=== PATIENT | male | born 1950 | race Caucasian/White ===

== ENCOUNTER 2019-05-03 07:06 | Outpatient (CLI) | payer MEDICARE, SELFPAY ==
--- NOTE | 2019-05-03 07:30 | XR_ITS ---
WS: [id number] KUB, 05/03/2019 Clinical Data: Follow up for elevated PSA Comparison: KUB, 11/17/2013. Findings: No abnormal intraabdominal masses or calcifications are seen. There is no dilatated small bowel or ev idence of obstruction. No definite renal or ureteral calculi are seen. There is fecal material in the colon which obscures d etail over the right kidney. Clinical material in the rectum obscures detail in the true pelvis. XR/XR KUB [id number] Impression: Negative KUB.
== END 2019-05-03 07:07 | disposition home or self-care (01) ==
PROVIDERS: Family Provider Family Medicine; PCP Family Medicine; Visit Provider Urology
DX: Q62.11 Congenital occlusion of ureteropelvic junction (principal); R97.20 Elevated prostate specific antigen [PSA]
CPT/HCPCS: 36415; 74018; 81001; 84153

== ENCOUNTER → 2019-05-23 08:49 | Outpatient (BNVA) | payer MEDICARE, SELFPAY | PROVIDERS: Family Provider Family Medicine; PCP Family Medicine; Visit Provider Urology | DX: R97.20 Elevated prostate specific antigen [PSA] (principal) | CPT/HCPCS: 88305 ==

== ENCOUNTER 2019-06-16 13:43 | Outpatient (CLI) | payer MEDICARE, SELFPAY ==
--- NOTE | 2019-06-20 11:39 | N.ONRAD NP_ITS ---
Radiation Oncology New Patient Visit Patient: Juvencio Lacy MR#: [id number] : 1950> Age: 69> Sex: Male> Dictated by: Dr. Davon Ruiz Date of Service: 06/16/2019 Referring Physician(s) : Dr. 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 Chief Complaint / History of Present Illness Mr. Warren is noted to have a elevated PSA level since July 2018 when it was initially 11.53 recheck at that time was 16.4 recheck in October 2018 was 7.53 and finally in April 2019 8.5. He ultimately underwent trans-rectal needle biopsy here on May 23, 2019 it revealed Salinas score 6 adenocarcinoma in involving 10 to 50% of 4 of 12 biopsies obtained. During this time he has had ongoing nocturia occurring 3-4 times at night with good flow and modest ongoing urgency. 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 He has gained 20 pounds over the last 6 months with stable appetite. Allergies: No Known Allergies Medical History: No history of collagen vascular disease. No previous radiation therapy. Surgical History: Reconstruction of ureteral repair at [facility] for obstruction. History of acute pancreatitis last year Family History: Father is at age 53 having experienced myocardial infarction. Mother is at age 63 having experienced brain tumor. Social History: Current Complaints / Review of Systems: Constitutional - Complains of mild fatigue. Denies lack of appetite, fever, night sweats and change in weight. Eyes - Denies blurred vision. ENMT - Denies dysphagia, ear pain, mouth dryness, stomatitis and altered taste. Neck - Denies neck pain. Integumentary - Denies rash. Cardiovascular - Denies arrhythmias, chest pain and edema. Respiratory - Complains of cough which happens in the morning and is a dry cough. Denies dyspnea and wheezing. Gastrointestinal - Complains of occasional diarrhea. Denies abdominal pain, constipation, heartburn / dyspepsia, melena / GI bleeding, nausea and vomiting. Genitourinary (M) - Complains of frequency and nocturia gets up about 4 times per night. Denies dysuria, hematuria and urgency. Musculoskeletal - Complains of joint pain right shoulder. Denies bone pain and muscle weakness. Neurologic - Denies dizziness, abnormal gait and headaches. Endocrine - Denies diabetes and thyroid disease. Hematologic/Lymphatic - Denies tender or enlarged lymph nodes.. Vital Signs: Performed on 06/16/2019 3:00 PM BMI - 36.793 kg/m2 (high), Height - 71.00 in, Weight - 263.8 lbs, Temperature - 98.3 f, Pulse - 69, Respiration - 20, O2 Sat - 98 %, Pain - 0 and BP - 161/ 83 mm(hg)(high/). Physical Exam: Alert cooperative somewhat anxious gentleman in no acute distress HEENT examination unremarkable lymph nodes he had no palpable cervical or supraclavicular adenopathy lungs clear to auscultation heart regular without murmur gallop abdominal examination unremarkable outside of obesity. Rectal examination revealed a small smooth prostate with no masses nodularity or asymmetry Performance Status: 100 Pathology: Arnoldo score 6 adenocarcinoma involving 4 of 12 biopsies as summarized above Lab: Imaging: See HPI Impression: In summary my impression is that of favorable stage I (T1 cN0 M0) Arnoldo score 6 adenocarcinoma the prostate in light of his declining PSA level which may reflect occult pancreatitis now with a PSA less than 10 I did not feel he required staging CT scan of the abdomen or pelvis or bone scan imaging. In addition I did not feel he required adjuvant hormonal therapy with definitive local treatment. I felt that he was a candidate for both definitive surgical resection as well as definitive radiation treatment. I discussed the relative merits and toxicities of both treatments. He will contemplate his choices and decide with Dr. Poe what definitive treatment he would like to proceed with in the future. Plan: Signed by: 06/20/2019 11:38:02 AM <<Signature on File>> Time spent with patient: CPT Code: CPT Code:
== END 2019-06-16 13:44 | disposition home or self-care (01) ==
LOC: ONCMED 13:43
PROVIDERS: Family Provider Family Medicine; PCP Family Medicine; Referring Provider Urology; Visit Provider Radiology Radiation Oncology
DX: C61 Malignant neoplasm of prostate (principal)
CPT/HCPCS: 99204

== ENCOUNTER 2019-07-20 06:59 | Outpatient (RCR) | payer MEDICARE, SELFPAY ==
--- NOTE | 2019-07-20 | CT_ITS ---
Radiation Therapy Planning CT images; total exam DLP: 928.00 mGy-cm MTDD
== END 2019-07-24 23:59 | disposition home or self-care (01) ==
LOC: ONCMED 06:59
PROVIDERS: PCP Family Medicine; Visit Provider Radiology Radiation Oncology
DX: C61 Malignant neoplasm of prostate (principal); N40.1 Benign prostatic hyperplasia with lower urinary tract symptoms; N13.8 Other obstructive and reflux uropathy
CPT/HCPCS: 77334

== ENCOUNTER 2019-08-23 06:50 | Outpatient (RCR) | payer MEDICARE, SELFPAY ==
--- NOTE | 2019-07-26 13:02 | ONCRAD TMN_ITS ---
Radiation Oncology Weekly Treatment Management Patient: Juvencio Lacy MR#: [id number] : 1950 Age: 69 Sex: Male Dictated by: Dr. Davon Ruiz Date of Service: 07/26/2019 Referring Physician(s) : Dr. Zachary Poe Primary Diagnosis: C61 - Malignant neoplasm of prostate, Diagnosed 06/16/2019 (Active) Stage I, T1c, N0, M0, P<10, G1 Radiotherapy to date: Course: Prostate 2019, Treatment Site: Prostate 78Gy, Ref. ID: [id number], Energy: 15X/6X, Dose/Fx (cGy): 200, #Fx: , Dose Correction (cGy): 0, Total Dose (cGy): 200, Start Date: 07/26/2019, Elapsed Days: 0 Current Complaints/Interval History: Yes ma'am how is he doing not much he is just begun treatment today he took 0.5 mg of Xanax for anxiety related to treatment anticipation. This was insufficient and did nothing for him as yet. I discussed increasing Xanax to 1 mg prior to treatment Constitutional Complains of mild fatigue. Denies lack of appetite, fever and night sweats. Gastrointestinal Complains of occasional diarrhea. Denies constipation. No rectal bleeding or irritation Genitourinary (M) Complains of nocturia gets up about 4 times per night. Denies dysuria, frequency and urgency. Current Medications: Acetaminophen, allopurinol, metoprolol Succinate ER, pantoprazole Sodium, xanax. Allergies: No Known Allergies Vital Signs: Performed on 07/26/2019 10:08 AM BMI - 36.932 kg/m2 (high), Height - 71.00 in, Weight - 264.8 lbs, Temperature - 98.8 f, Pulse - 67, Respiration - 20, O2 Sat - 97 %, Pain - 6 and BP - 163/ 88 mm(hg)(high/). Physical Exam: Appears stable, no skin erythema or desquamation. Performance Status: 0 - Fully active, able to carry on all predisease activities without restrictions. (ECOG) Lab: None pending in Radiation Oncology. Imaging: No new diagnostic imaging was performed since the last weekly treatment visit. All radiation therapy related imaging (including but not limited to kV, MV, and CBCT generated images) was reviewed. Appropriate changes, if any, were made to assure accurate target localization. Impression/Plan: Tolerating treatment well with expected side effects. Continue treatment as planned. Increase Xanax 1 mg before treatment for anxiety CPT: 34050 Signed by: Dr. Davon Ruiz>07/26/2019 1:01:10 PM <<Signature on File>>
--- NOTE | 2019-08-02 09:47 | N.ONRAD NP_ITS ---
Radiation Oncology Weekly Treatment Management, Patient: Juvencio Lacy MR#: [id number] : 1950> Age: 69> Sex: Male Dictated by: Geneva Guerrero Date of Service: 08/02/2019 Referring Physician(s) : Dr. Zachary Poe Diagnosis: C61 - Malignant neoplasm of prostate, Diagnosed 06/16/2019 (Active) Stage I, T1c, N0, M0, P<10, G1 Patient presents today for check-up by registered nurse. The patients has had Course: Prostate 2019, Treatment Site: Prostate 78Gy, , Ref. ID: [id number], Energy: 15X/6X, Dose/Fx (cGy): 200, #Fx: , Dose Correction (cGy): 0, Total Dose (cGy): 1,200, Start Date: 07/26/2019, End Date: 08/02/2019, Elapsed Days: 7. Patient Has complaint of dysuria but is tolerable. I have addressed complaints by encouraging the patient to drink plenty of fluids. I let the patient know that we could do a UA to rule out a UTI and the patient did not want to do it at this time. This nurse told the patient that if it gets worse to let me know and we can order one. Nursing assessment of patient as follows: Constitutional Complains of moderate fatigue. Denies lack of appetite, night sweats and change in weight. Gastrointestinal Denies constipation and diarrhea. No rectal bleeding or irritation. Genitourinary (M) Complains of dysuria that has occurred within the last several days and is tolerable at this time.. Complains of frequency. Complains of nocturia getting up every 2 hours to urinate. Denies hematuria, urgency and urine color change. Questions encouraged and answered. I encouraged patient to call with any concerns. Patient verbalized understanding and denied any further needs at this time. Vital Signs: Performed on 08/02/2019 9:19 AM BMI - 37.49 kg/m2 (high), Height - 71.00 in, Weight - 268.8 lbs, Temperature - 98.2 f, Pulse - 71, Respiration - 18, O2 Sat - 95 % (low), Pain - 0 and BP - 176/ 77 mm(hg)(high/). Signed by: Geneva Guerrero>08/02/2019 9:45:25 AM <<Signature on File>>
[2019-08-09 10:26] LABS: Add Urine Microscopic? NO
[2019-08-09 10:36] LABS: Bilirubin Urine Neg (NEGATIVE); Blood Urine Neg (Negative); Glucose Urine UA Norm (Normal); Ketones Urine Negative (Negative); Leukocyte Esterase Urine Negative (Negative); Nitrate Urine Negative (Negative); Protein Urine Neg (Negative); Specific Gravity, Urine 1.015 (1.005-1.030); Urine Appearance Clear (CLEAR); Urine Color Yellow (Yellow); Urobilinogen Urine Norm (Negative); pH Urine 5 (5-7)
--- NOTE | 2019-08-11 10:38 | ONCRAD TMN_ITS ---
Radiation Oncology Weekly Treatment Management Patient: Juvencio Lacy MR#: [id number] : 1950> Age: 69> Sex: Male Dictated by: Dr. Patrick Ellsworth Date of Service: 08/09/2019 Referring Physician(s) : Dr. Zachary Poe Primary Diagnosis: C61 - Malignant neoplasm of prostate, Diagnosed 06/16/2019 (Active) Stage I, T1c, N0, M0, P<10, G1 Radiotherapy to date: Course: Prostate 2019, Treatment Site: Prostate 78Gy, Ref. ID: [id number], Energy: 15X/6X, Dose/Fx (cGy): 200, #Fx: , Dose Correction (cGy): 0, Total Dose (cGy): 2,200, Start Date: 07/26/2019, Elapsed Days: 14 Current Complaints/Interval History: 2200 cGy in 11 fractions. Mr. Marinelli is having significant fatigue. That is probably at least partially related to the fact that he is having a great deal of nocturia. Last night he was up 10 times. That was by far the worst night he has had. He is also developed discomfort with urination as well as urgency. He has no bowel complaints. No fever or chills. Constitutional Complains of lack of appetite. Complains of severe fatigue. Denies fever and night sweats. Gastrointestinal Denies constipation and diarrhea. No rectal bleeding or irritation Genitourinary (M) Complains of dysuria, frequency, nocturia get up about 10 times per night and urgency. Denies hematuria. Current Medications: Acetaminophen, allopurinol, metoprolol Succinate ER, pantoprazole Sodium, xanax. Allergies: No Known Allergies Vital Signs: Performed on 08/09/2019 9:06 AM BMI - 36.932 kg/m2 (high), Height - 71.00 in, Weight - 264.8 lbs, Temperature - 98.8 f, Pulse - 78, Respiration - 18, O2 Sat - 97 %, Pain - 0 and BP - 148/ 87 mm(hg)(high/). Physical Exam: Appears stable, no skin erythema or desquamation. Alert, oriented, and in no distress. Performance Status: 0 - Fully active, able to carry on all predisease activities without restrictions. (ECOG) Lab: None pending in Radiation Oncology. Imaging: No new diagnostic imaging was performed since the last weekly treatment visit. All radiation therapy related imaging (including but not limited to kV, MV, and CBCT generated images) was reviewed. Appropriate changes, if any, were made to assure accurate target localization. Impression/Plan: We will obtain a urinalysis and then culture if indicated. I am going to start him on Flomax. He will also get [id number] Azo. No antibiotic will be prescribed until we know the results of the urinalysis.. Continue treatment as planned. CPT: 08932 Signed by: Dr. Patrick Ellsworth>08/11/2019 10:37:42 AM <<Signature on File>>
--- NOTE | 2019-08-16 10:08 | ONCRAD TMN_ITS ---
Radiation Oncology Weekly Treatment Management Patient: Juvencio Lacy MR#: [id number] : 1950> Age: 69> Sex: Male Dictated by: Dr. Patrick Ellsworth Date of Service: 08/16/2019 Referring Physician(s) : Dr. Zachary Poe Primary Diagnosis: C61 - Malignant neoplasm of prostate, Diagnosed 06/16/2019 (Active) Stage I, T1c, N0, M0, P<10, G1 Radiotherapy to date: Course: Prostate 2019, Treatment Site: Prostate 78Gy, Ref. ID: [id number], Energy: 15X/6X, Dose/Fx (cGy): 200, #Fx: 16 / 39, Dose Correction (cGy): 0, Total Dose (cGy): 3,200, Start Date: 07/26/2019, Elapsed Days: Current Complaints/Interval History: Mr. Weinstein continues to have difficulty. He had a urinalysis last week because of frequency and dysuria. The urinalysis was negative. He obtained [id number] Azo and was placed on Flomax. The OTC Azo seems to be helpful. The Flomax has not produced any change in symptoms at this point. He has tolerated the Flomax well. He currently is still experiencing dysuria, daytime frequency, and nocturia hourly. I am going to have him continue the Azo and will have him take a second Flomax. Since he is experiencing symptoms during the day and night, I will have him take 1 twice daily. He continues to have occasional loose stools. They are not troublesome to him and he does not need any adjustment in diet or Imodium. He has moderate fatigue, certainly at least partly related to the urinary symptoms and getting up so frequently at night. Constitutional Complains of lack of appetite. Complains of moderate fatigue. Denies fever and night sweats. Gastrointestinal Complains of intermittent diarrhea which is characterized as loose, watery. Denies constipation. No rectal bleeding or irritation Genitourinary (M) Complains of dysuria, frequency, nocturia gets up about every hour at night and urgency occasionally. Denies hematuria. Current Medications: Acetaminophen, allopurinol, azo Tabs, metoprolol Succinate ER, pantoprazole Sodium, tamsulosin HCl, xanax. Allergies: No Known Allergies Vital Signs: Performed on 08/16/2019 9:07 AM BMI - 36.932 kg/m2 (high), Height - 71.00 in, Weight - 264.8 lbs, Temperature - 98.9 f, Pulse - 66, Respiration - 22, O2 Sat - 96 %, Pain - 0 and BP - 146/ 89 mm(hg)(high/). Physical Exam: Appears stable, no skin erythema or desquamation. Performance Status: 0 - Fully active, able to carry on all predisease activities without restrictions. (ECOG) Lab: None pending in Radiation Oncology. Imaging: No new diagnostic imaging was performed since the last weekly treatment visit. All radiation therapy related imaging (including but not limited to kV, MV, and CBCT generated images) was reviewed. Appropriate changes, if any, were made to assure accurate target localization. Impression/Plan: Tolerating treatment with moderately troublesome side effects. Medication adjustment as noted above. Continue treatment as planned. CPT: 63082 Signed by: Dr. Patrick Ellsworth>08/16/2019 10:07:01 AM <<Signature on File>>
--- NOTE | 2019-08-23 09:58 | ONCRAD TMN_ITS ---
Radiation Oncology Weekly Treatment Management Patient: Juvencio Lacy MR#: [id number] : 1950 Age: 69 Sex: Male Dictated by: Dr. Patrick Ellsworth Date of Service: 08/23/2019 Referring Physician(s) : Dr. Zachary Poe Diagnosis: C61 - Malignant neoplasm of prostate, Diagnosed 06/16/2019 (Active) Stage I, T1c, N0, M0, P<10, G1 Radiotherapy to date: Course: Prostate 2019, Treatment Site: Prostate 78Gy, Ref. ID: [id number], Energy: 15X/6X, Dose/Fx (cGy): 200, #Fx: , Dose Correction (cGy): 0, Total Dose (cGy): 4,200, Start Date: 07/26/2019, Elapsed Days: 28 Chief Complaint/History of Present Illness: Tumor dose 4200 cGy in 21 fractions. Mr. Lacy continues to have problems. He has frequency of urination both night and day. He has some burning. No pyuria. He has nocturia hourly at night most of the time. He is taking 2 Flomax per day. He is not sure that the second Flomax has helped any. He continues the Azo and that is of benefit. He has not had any pyuria or hematuria. Urinalysis about 2 weeks ago was completely negative. His symptoms have not changed significant since the urinalysis was done. We will continue the Flomax and Azo for now. He was in encouraged to have a good fluid intake to keep the urine dilute. He has no bowel complaints but he is noticed slight rectal irritation. It is a mild sensation of burning. He was given samples of Aquaphor. Also I told him he could use hydrocortisone ointment or cream. Current Medications: Acetaminophen, allopurinol, azo Tabs, metoprolol Succinate ER, pantoprazole Sodium, tamsulosin HCl, xanax. Allergies: No Known Allergies Current Complaints/Review of Systems: Constitutional - Complains of lack of appetite. Complains of moderate fatigue. Denies fever, night sweats and change in weight. Integumentary - Has no rectal bleeding but has rectal irritation. Gastrointestinal - Complains of occasional diarrhea. Denies constipation. Genitourinary (M) - Complains of dysuria which comes and goes with being on Azo, frequency, nocturia gets up every hour and urgency. Vital Signs: Performed on 08/23/2019 9:15 AM BMI - 36.96 kg/m2 (high), Height - 71.00 in, Weight - 265.0 lbs, Temperature - 98.2 f, Pulse - 69, Respiration - 20, O2 Sat - 96 %, Pain - 0 and BP - 150/ 88 mm(hg)(high/). Physical Exam: Appears stable, no skin erythema or desquamation. Performance Status: 0 - Fully active, able to carry on all predisease activities without restrictions. (ECOG) Lab: None pending in Radiation Oncology. Imaging: No new diagnostic imaging was performed since the last weekly treatment visit. All radiation therapy related imaging (including but not limited to kV, MV, and CBCT generated images) was reviewed. Appropriate changes, if any, were made to assure accurate target localization. Impression/Plan: Tolerating treatment well with expected side effects. Continue treatment as planned. Continue Flomax twice daily and Azo. We are coming up on a 3-day weekend for 26 August. I encouraged Mr. Lacy to take a 4-day weekend, but he is not inclined to do so at this time. 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 I told him he needed to take a break of about 30 minutes every 45 minutes to an hour while mowing. CPT: 56597 Signed by: Dr. Patrick Ellsworth>08/23/2019 9:56:43 AM <<Signature on File>>
== END 2019-08-23 23:59 | disposition home or self-care (01) ==
LOC: ONCMED 06:50
PROVIDERS: PCP Family Medicine; Visit Provider Specialist
DX: Z51.0 Encounter for antineoplastic radiation therapy (principal); C61 Malignant neoplasm of prostate; F41.9 Anxiety disorder, unspecified; R35.1 Nocturia; R35.0 Frequency of micturition; R19.7 Diarrhea, unspecified; Z79.899 Other long term (current) drug therapy
CPT/HCPCS: 77300; 77301; 77336; 77338; 77385; 81003

== ENCOUNTER 2019-09-19 06:47 | Outpatient (RCR) | payer MEDICARE, SELFPAY ==
--- NOTE | 2019-08-30 19:07 | ONCRAD TMN_ITS ---
Radiation Oncology Weekly Treatment Management Patient: Juvencio Lacy MR#: [id number] : 1950 Age: 69 Sex: Male Dictated by: Dr. Jaciel Abarca Date of Service: 08/30/2019 Referring Physician(s) : Dr. Zachary Poe Diagnosis: C61 - Malignant neoplasm of prostate, Diagnosed 06/16/2019 (Active) Stage I, T1c, N0, M0, P<10, G1 Radiotherapy to date: Course: Prostate 2019, Treatment Site: Prostate 78Gy, Ref. ID: [id number], Energy: 15X/6X, Dose/Fx (cGy): 200, #Fx: / 39, Dose Correction (cGy): 0, Total Dose (cGy): 5,000, Start Date: 07/26/2019, Elapsed Days: 35 Chief Complaint/History of Present Illness: The patient reports persistent nocturia, dysuria, urinary frequency, and fatigue. Furthermore, he has persistent loose stools which occurs once each morning. Medical optimization was offered, but declined by the patient. Current Medications: Acetaminophen, allopurinol, azo Tabs, metoprolol Succinate ER, pantoprazole Sodium, tamsulosin HCl, xanax. Allergies: No Known Allergies Current Complaints/Review of Systems: Constitutional - Complains of lack of appetite off and on. Complains of severe fatigue. Denies fever, night sweats and change in weight. Gastrointestinal - Complains of diarrhea which is characterized as loose, watery and usually happens 1 time in the morning. Denies constipation. No rectal bleeding or irritation. Genitourinary (M) - Complains of dysuria. Complains of frequency. Complains of occasional incontinence. Complains of nocturia in which it is every hour. Complains of urgency. Vital Signs: Performed on 08/30/2019 9:13 AM BMI - 37.016 kg/m2 (high), Height - 71.00 in, Weight - 265.4 lbs, Temperature - 98.8 f, Pulse - 69, Respiration - 18, O2 Sat - 95 % (low), Pain - 8 and BP - 143/ 77 mm(hg)(high/). Physical Exam: Appears stable, no skin erythema or desquamation. Performance Status: 0 - Fully active, able to carry on all predisease activities without restrictions. (ECOG) Lab: None pending in Radiation Oncology. Imaging: No new diagnostic imaging was performed since the last weekly treatment visit. All radiation therapy related imaging (including but not limited to kV, MV, and CBCT generated images) was reviewed. Appropriate changes, if any, were made to assure accurate target localization. Impression/Plan: Tolerating treatment well with expected side effects. Continue treatment as planned. CPT: 46753 Signed by: Dr. Jaciel Abarca>08/30/2019 7:05:36 PM <<Signature on File>>
--- NOTE | 2019-09-06 17:22 | ONCRAD TMN_ITS ---
Radiation Oncology Weekly Treatment Management Patient: Juvencio Lacy MR#: [id number] : 1950> Age: 69> Sex: Male Dictated by: Dr. Jaciel Abarca Date of Service: 09/06/2019 Referring Physician(s) : Dr. Zachary Poe Diagnosis: C61 - Malignant neoplasm of prostate, Diagnosed 06/16/2019 (Active) Stage I, T1c, N0, M0, P<10, G1 Radiotherapy to date: Course: Prostate 2019, Treatment Site: Prostate 78Gy, Ref. ID: [id number], Energy: 15X/6X, Dose/Fx (cGy): 200, #Fx: 30 / 39, Dose Correction (cGy): 0, Total Dose (cGy): 6,000, Start Date: 07/26/2019, End Date: 09/06/2019, Elapsed Days: 42 Chief Complaint Interim History: The patient reports diarrhea which occurs 3 episodes per day. Furthermore he has fatigue, and excessive nocturia. He requests a refill on his Xanax. Current Medications: Acetaminophen, allopurinol, azo Tabs, metoprolol Succinate ER, pantoprazole Sodium, tamsulosin HCl, xanax. Allergies: No Known Allergies Current Complaints/Review of Systems: Constitutional - Complains of severe fatigue. Denies lack of appetite, fever and night sweats. Integumentary - No rectal bleeding or irritation. Gastrointestinal - Complains of diarrhea which is characterized as loose, watery and has about 3 episodes per day. Denies constipation. Genitourinary (M) - Complains of dysuria. Complains of occasional incontinence. Complains of nocturia in which he gets up every hour. Complains of urgency. Denies frequency. Vital Signs: Performed on 09/06/2019 9:05 AM BMI - 36.877 kg/m2 (high), Height - 71.00 in, Weight - 264.4 lbs, Temperature - 98.9 f, Pulse - 61, Respiration - 22, O2 Sat - 97 %, Pain - 0 and BP - 150/ 84 mm(hg)(high/). Physical Exam: Appears stable, no skin erythema or desquamation. Performance Status: 1 - No physically strenuous activity, but ambulatory and able to carry out light or sedentary work (e.g. office work, light house work). (ECOG) Lab: None pending in Radiation Oncology. Imaging: No new diagnostic imaging was performed since the last weekly treatment visit. All radiation therapy related imaging (including but not limited to kV, MV, and CBCT generated images) was reviewed. Appropriate changes, if any, were made to assure accurate target localization. Impression/Plan: Tolerating treatment well with expected side effects. Continue treatment as planned. I have called in a prescription for Xanax for another 10-day supply. We also discussed the importance of using loperamide to control his diarrhea. He desires no medication changes to address his nocturia. CPT: 93404 Signed by: Dr. Jaciel Abarca>09/06/2019 5:20:44 PM <<Signature on File>>
--- NOTE | 2019-09-13 13:03 | ONCRAD TMN_ITS ---
Radiation Oncology Weekly Treatment Management Patient: Juvencio Lacy MR#: [id number] : 1950> Age: 69> Sex: Male Dictated by: Dr. Jaciel Abarca Date of Service: 09/13/2019 Referring Physician(s) : Dr. Zachary Poe Diagnosis: C61 - Malignant neoplasm of prostate, Diagnosed 06/16/2019 (Active) Stage I, T1c, N0, M0, P<10, G1 Radiotherapy to date: Course: Prostate 2019, Treatment Site: Prostate 78Gy, Ref. ID: [id number], Energy: 15X/6X, Dose/Fx (cGy): 200, #Fx: 35 / 39, Dose Correction (cGy): 0, Total Dose (cGy): 7,000, Start Date: 07/26/2019, End Date: 09/13/2019, Elapsed Days: 49 Interim history: Patient's most prominent complaints include progressive urinary frequency, a left groin pain/rash and a watery stool twice per day. He also notes an episode of rectal bleeding which has self resolved. Current Medications: Acetaminophen, allopurinol, aLPRAZolam, metoprolol Succinate ER, pantoprazole Sodium, tamsulosin HCl, xanax. Allergies: No Known Allergies Current Complaints/Review of Systems: Constitutional - Complains of lack of appetite. Complains of severe fatigue. Denies fever, night sweats and change in weight. Gastrointestinal - Complains of persistent diarrhea which is characterized as loose, watery and has about 2 episodes per day. Denies constipation. Did have some rectal bleeding for a couple of days then went away. No rectal irritation. Genitourinary (M) - Complains of dysuria, frequency, hematuria occasionally that is pink tinged, nocturia gets up 10 to 12 times per night and urgency. Has left groin pain that started about a week ago. Vital Signs: Performed on 09/13/2019 9:13 AM BMI - 36.821 kg/m2 (high), Height - 71.00 in, Weight - 264.0 lbs, Temperature - 98.4 f, Pulse - 69, Respiration - 18, O2 Sat - 99 %, Pain - 8 and BP - 150/ 85 mm(hg)(high/). Physical Exam: Physical exam reveals clinical findings suggestive of a candidal infection in the intertriginous areas underneath the patient's bilateral pannus. There is no erythema within the bilateral groin. Performance Status: 1 - No physically strenuous activity, but ambulatory and able to carry out light or sedentary work (e.g. office work, light house work). (ECOG) Lab: None pending in Radiation Oncology. Imaging: . All radiation therapy related imaging (including but not limited to kV, MV, and CBCT generated images) was reviewed. Appropriate changes, if any, were made to assure accurate target localization. Impression/Plan: Tolerating treatment well with expected side effects. Continue treatment as planned. The patient was recommended to use [id number] medications (Desitin and or Caldesene) for management of his presumptive candidal infection underneath his pannus. CPT: 67135 Signed by: Dr. Jaciel Abarca>09/13/2019 1:01:36 PM <<Signature on File>>
== END 2019-09-23 23:59 | disposition home or self-care (01) ==
LOC: ONCMED 06:47
PROVIDERS: PCP Family Medicine; Visit Provider Radiology Radiation Oncology
DX: Z51.0 Encounter for antineoplastic radiation therapy (principal); C61 Malignant neoplasm of prostate
CPT/HCPCS: 77336; 77385

== ENCOUNTER 2020-03-19 08:06 | Outpatient (CLI) | payer MEDICARE, SELFPAY | END 2020-03-19 08:07 | disposition home or self-care (01) | LOC: ONCMED 08:08 | PROVIDERS: PCP Family Medicine; Visit Provider Radiology Radiation Oncology | DX: C61 Malignant neoplasm of prostate (principal) | CPT/HCPCS: 36415; 84153 ==

== ENCOUNTER 2020-03-30 08:01 | Outpatient (CLI) | payer MEDICARE, SELFPAY ==
--- NOTE | 2020-03-30 08:59 | ONCRAD EPV_ITS ---
Radiation Oncology Follow-Up Note Patient Name: Juvencio Lacy Date of : 1950 Date of Service: 03/30/2020 Attending Physician: Rizwan Rojas M.D. Juvencio Lacy returned to my office this morning for a routinely scheduled follow-up appointment. He completed prostate radiotherapy in August 2019 for the management of his clinical stage I (T1cN0) adenocarcinoma of the prostate. ???His pretreatment PSA was 8.5 ng/mL. ???A TRUS biopsy identified a Arnoldo???s score of 6 (3+3). Radiotherapy was administered between the dates of July 26, 2019 through September 19, 2019. A prescribed dose of 78 Gy was delivered in 39 fractions encompassing 56r elapsed days. On review of systems, He described nocturia (10 times). He has failed maximum dose alpha 1 juani (Flomax). On physical examination, the patient weighed 254 pounds. The temperature is 99???F. His blood pressure was 163/85 mmHg. The pulse was 68 bpm and his respiratory rate was 18 breaths per minute. In summary, Mr. Lacy returned for a routine follow-up appointment. A PSA obtained in prior to this appointment was 2.7 ng/mL. He has no evidence of biochemical failure and will be scheduled to see his urologist for nocturia resistant to pharmacotherapy. Signed by: Dr. Rizwan Rojas 03/30/2020 8:58:41 AM
== END 2020-03-30 08:02 | disposition home or self-care (01) ==
LOC: ONCMED 08:04
PROVIDERS: PCP Family Medicine; Visit Provider Radiology Radiation Oncology
DX: Z08 Encounter for follow-up examination after completed treatment for malignant neoplasm (principal); Z85.46 Personal history of malignant neoplasm of prostate; R35.1 Nocturia; Z92.3 Personal history of irradiation
CPT/HCPCS: 99213

== ENCOUNTER → 2020-04-12 10:01 | Outpatient (BNVA) | payer MEDICARE, SELFPAY | PROVIDERS: PCP Family Medicine; Visit Provider Nurse Practitioner Family | DX: N13.8 Other obstructive and reflux uropathy (principal); N40.1 Benign prostatic hyperplasia with lower urinary tract symptoms; C61 Malignant neoplasm of prostate | CPT/HCPCS: 81003 ==

== ENCOUNTER → 2020-07-17 07:33 | Outpatient (BNVA) | payer MEDICARE, SELFPAY | PROVIDERS: PCP Family Medicine; Visit Provider Urology | DX: C61 Malignant neoplasm of prostate (principal); N13.8 Other obstructive and reflux uropathy; N40.1 Benign prostatic hyperplasia with lower urinary tract symptoms; N52.9 Male erectile dysfunction, unspecified | CPT/HCPCS: 81003; 84153 ==

== ENCOUNTER → 2020-10-17 07:40 | Outpatient (BNVA) | payer MEDICARE, SELFPAY | PROVIDERS: PCP Family Medicine; Visit Provider Urology | DX: C61 Malignant neoplasm of prostate (principal); N13.8 Other obstructive and reflux uropathy; N40.1 Benign prostatic hyperplasia with lower urinary tract symptoms; R30.0 Dysuria; N52.9 Male erectile dysfunction, unspecified; N13.5 Crossing vessel and stricture of ureter without hydronephrosis | CPT/HCPCS: 81003; 84153 ==

== ENCOUNTER → 2021-01-29 07:59 | Outpatient (BNVA) | payer MEDICARE, SELFPAY | PROVIDERS: PCP Family Medicine; Visit Provider Urology | DX: C61 Malignant neoplasm of prostate (principal); N40.1 Benign prostatic hyperplasia with lower urinary tract symptoms; N13.8 Other obstructive and reflux uropathy | CPT/HCPCS: 81003; 84153 ==

== ENCOUNTER → 2021-03-19 07:58 | Outpatient (BNVA) | payer MEDICARE, SELFPAY | PROVIDERS: PCP Family Medicine; Visit Provider Urology | DX: N13.8 Other obstructive and reflux uropathy (principal); N40.1 Benign prostatic hyperplasia with lower urinary tract symptoms; C61 Malignant neoplasm of prostate; N32.3 Diverticulum of bladder | CPT/HCPCS: 81003 ==

== ENCOUNTER → 2021-05-02 08:05 | Outpatient (BNVA) | payer MEDICARE, SELFPAY | PROVIDERS: PCP Family Medicine; Visit Provider Urology | DX: R30.0 Dysuria (principal) | CPT/HCPCS: 81003 ==

== ENCOUNTER 2021-08-27 06:45 | Outpatient (CLI) | payer MEDICARE, SELFPAY | END 2021-08-27 06:46 | disposition home or self-care (01) | PROVIDERS: PCP Family Medicine; Visit Provider Urology | DX: C61 Malignant neoplasm of prostate (principal); N32.81 Overactive bladder | CPT/HCPCS: 36415; 51798; 81003; 84153; 99213 ==

== ENCOUNTER 2022-02-20 07:05 | Outpatient (CLI) | payer MEDICARE, SELFPAY ==
[2022-02-20 07:51] LABS: Prostate Specific AG Urology 0.37 ng/mL (0-4)
== END 2022-02-20 07:06 | disposition home or self-care (01) ==
LOC: LAB 07:06
PROVIDERS: PCP Family Medicine; Visit Provider Urology
DX: R97.20 Elevated prostate specific antigen [PSA] (principal)
CPT/HCPCS: 36415; 84153

== ENCOUNTER → 2022-02-27 07:50 | Outpatient (BNVA) | payer MEDICARE, SELFPAY | PROVIDERS: Visit Provider Urology | DX: N40.1 Benign prostatic hyperplasia with lower urinary tract symptoms (principal); N13.8 Other obstructive and reflux uropathy; R00.1 Bradycardia, unspecified; R06.02 Shortness of breath; N32.81 Overactive bladder; C61 Malignant neoplasm of prostate; N32.3 Diverticulum of bladder | CPT/HCPCS: 99214 ==

== ENCOUNTER 2022-02-27 08:30 | Observation (INO) | payer MEDICARE, SELFPAY ==
[2022-02-27] VITALS (12 sets, daily range): BP systolic 121–155; BP diastolic 68–96; PULSE 39–79; RESP 16–26; TEMP 36.3–37; O2SAT 95–99; BMI 37.6
--- NOTE | 2022-02-27 08:53 | XR_ITS ---
WS: [id number] Portable AP upright chest, 02/27/2022 Clinical Data: dyspnea/cough Comparison: Portable chest, 07/31/2018 Findings: No nodules, masses or effusions are seen. The heart is enlarged. The pulmonary vascularity is not increased. No pneumothorax is seen. There is bilateral patchy lower lobe opacity which may rep resent atelectasis and/or pneumonia. The aortic arch and descending thoracic aorta show tortuosity. T here are monitor leads on the chest wall. There is an healed fracture of the midshaft of the right cl avicle. XR/XR chest 1V portable [id number] Impression: 1. Patchy bilateral lower lobe opacities which may represent atelectasis and/or pneumonia. 2. Cardiomegaly and atherosclerosis.
--- NOTE | 2022-02-27 08:53 | ECG_ITS ---
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 Measurements Intervals [place] Rate: 77 P: 0 OK: 0 QRS: 1 QRSD: 93 T: 8 QT: 372 QTc: 422 Interpretive Statements SUPRAVENTRICULAR RHYTHM ANTEROSEPTAL MYOCARDIAL INFARCTION , OF INDETERMINATE AGE [40+ ms Q WAVE IN V1-V4] Compared to ECG 07/31/2018 14:06:38 Supraventricular rhythm now present Sinus tachycardia no longer present Ventricular premature complex(es) no longer present Myocardial infarct finding still present Electronically Signed On 02-27-2022 10:37:07 WIRE COILER by Umberto Gonsalez M.D. [id number]
[2022-02-27 09:13] LABS: Basophils # 0.1 10^3/uL (0.0-0.1); Basophils % 0.9 %; Eosinophils # 0.2 10^3/uL (0.0-0.8); Eosinophils % 2.1 %; Hematocrit 46.5 % (42.0-52.0); Hemoglobin 14.7 g/dL (11.7-16.6); Lymphocytes # 1.1 10^3/uL (0.8-4.8); Lymphocytes % 13.8 %; Mean Corpuscular HGB Conc 31.6 g/dL (30.0-36.0); Mean Corpuscular Hemoglobin 27.8 pg (28.0-34.0); Mean Corpuscular Volume 87.9 fl (80-94); Mean Platelet Volume 10.2 fL (7.4-10.4); Monocytes # 0.6 10^3/uL (0.2-0.9); Monocytes % 7.4 %; Neutrophils # 6.16 10^3/uL (1.8-7.7); Neutrophils % 75.4 %; Nucleated Red Blood Cells % 0 %; Platelet Count 236 10^3/cmm (130-400); Red Blood Count 5.29 10^6/uL (4.1-5.3); Red Cell Distribution Width 14.6 % (12.1-15.1); White Blood Count 8.2 10^3/uL (4.0-10.0)
--- NOTE | 2022-02-27 09:22 | ED_ITS ---
HPI - SOB/Dyspnea General: Chief Complaint: Shortness of Breath/Dyspnea Stated Complaint: Low Heart Rate SOB Time Seen by Provider: 02/27/22 08:46 Source: patient Mode of arrival: ambulatory History of Present Illness: HPI Narrative: 71-year-old male presents emergency room acute respiratory distress. He has noticed increased swelling he was at the urologist today and was noted to have a heart rate in the mid 30s. He is on metoprolol. He is diabetic he was on Farxiga but stopped taking it. Since then he has noticed increased swelling in his feet. He states he usually walks about a mile a day and does not get any chest pain. On arrival here he is bradycardic with frequent PVCs. He is severely short of breath with any activity or when he is laid supine and sitting up he is able to maintain his oxygen sats 97% on room air. MD elicited complaint: shortness of breath and cough Pertinent past history: COPD and congestive heart failure Onset (ago): hour(s) Timing: constant Severity: mild Exacerbating factors: lying flat and exertion Relieving factors: nothing Associated symptoms: Reports chest congestion and chest pain; Deny abdominal pain, cough, diaphoresis, dizziness, extremity pain, fever(s), hemoptysis, lightheadedness, myalgias, nausea, orthopnea, palpitations, paresthesias, polydipsia, polyuria, rash, sense of impending doom, syncope or vomiting Treatment prior to arrival: none Review of Systems Const: Denies: fever(s) or diaphoresis Card: Reports: chest pain; Denies: palpitations, lightheadedness, syncope or orthopnea Resp: Reports: chest congestion; Denies: hemoptysis GI: Denies: abdominal pain, nausea or vomiting Musc: Denies: extremity pain Neuro: Denies: dizziness Endo: Denies: polyuria or polydipsia PFSH ED PFSH: Medical History BPH w urinary obs/LUTS Diabetes mellitus Elevated PSA Erectile dysfunction Gout Hypertension Prostate cancer Ureterolithiasis Ureteropelvic junction (UPJ) obstruction Surgical History History of urethral stent Family History Mother , 63 Cancer Brain tumor Father , 53-[place] CAD (coronary artery disease) Hypertension Social History Smoking and tobacco status: never smoked Alcohol intake: former Adopted: No Caregiver/support person: No Marital status: Current occupational status: retired History of recent travel: No Current gender identity: Male Physical Exam Const: GENERAL APPEARANCE: cooperative and comfortable ORIENTATION/CONSCIOUSNESS: Yes awake, Yes oriented to person, Yes oriented to place and Yes oriented to time HENMT: COMMON NORMALS: normocephalic, atraumatic and hearing grossly normal bilaterally HEAD & SCALP: normocephalic and atraumatic Resp: COMMON NORMALS: normal respiratory effort, No retractions, No use of accessory muscles and clear to auscultation bilaterally AUSCULTATION: clear to auscultation bilaterally Cardio: COMMON NORMALS: regular rate, regular rhythm and No murmurs present (Cardio) RATE: regular rate RHYTHM: regular rhythm GI: COMMON NORMALS: Soft to palpation and No hepatosplenomegaly present AUSCULTATION: Yes normoactive bowel sounds PALPATION: Yes Soft to palpation, No Tenderness to palpation present (GI), No Guarding due to palpation present (GI) and Yes No hepatosplenomegaly present Extremity: COMMON NORMALS: normal to inspection, capillary refill normal, no clubbing, cyanosis or edema, no calf tenderness and no pedal edema Neuro: SENSORIUM/ORIENTATION: Yes oriented to person, Yes oriented to place and Yes oriented to time Skin: COMMON NORMALS: no rashes or lesions noted GENERAL SKIN EXAM: no rashes or lesions noted Course Vital Signs: Vital signs: Vital Signs Temperature 97.3 F L 02/27/22 20:00 Pulse Rate 48 L 02/27/22 22:00 Respiratory Rate 24 H 02/27/22 20:00 Blood Pressure 124/74 02/27/22 20:00 Pulse Oximetry 95 02/27/22 20:00 Oxygen Delivery Me thod 02/27/22 20:00 MDM - SOB/Dyspnea Medical Decision Making Congestive heart failure improved with some diuresis. Will admit to hold his beta-juani diurese. Chest x-ray was read as possible pneumonia and covering with ceftriaxone and Zithromax although I felt chest x-ray looks more like congestive heart failure and his white count is normal discussed with Dr. Jeong orders written. Medical Records I reviewed the patient's medical records. Lab Data I reviewed the patient's lab results. 02/27/22 08:49 02/27/22 08:49 Labs/Radiology: Radiology Impressions Chest X-Ray 02/27/22 08:53 Impression: 1. Patchy bilateral lower lobe opacities which may represent atelectasis and/or pneumonia. 2. Cardiomegaly and atherosclerosis. Laboratory Results WBC 8.2 10^3/uL (4.0-10.0) 02/27/22 08:49 RBC 5.29 10^6/uL (4.1-5.3) 02/27/22 08:49 Hgb 14.7 g/dL (11.7-16.6) 02/27/22 08:49 Hct 46.5 % (42.0-52.0) 02/27/22 08:49 MCV 87.9 fl (80-94) 02/27/22 08:49 MCH 27.8 pg (28.0-34.0) L 02/27/22 08:49 MCHC 31.6 g/dL (30.0-36.0) 02/27/22 08:49 RDW 14.6 % (12.1-15.1) 02/27/22 08:49 Plt Count 236 10^3/cmm (130-400) 02/27/22 08:49 MPV 10.2 fL (7.4-10.4) 02/27/22 08:49 Neut % (Auto) 75.4 % 02/27/22 08:49 Lymph % (Auto) 13.8 % 02/27/22 08:49 Rhea % (Auto) 7.4 % 02/27/22 08:49 Eos % (Auto) 2.1 % 02/27/22 08:49 Baso % (Auto) 0.9 % 02/27/22 08:49 Neut # (Auto) 6.16 10^3/uL (1.8-7.7) 02/27/22 08:49 Lymph # (Auto) 1.1 10^3/uL (0.8-4.8) 02/27/22 08:49 Rhea # (Auto) 0.6 10^3/uL (0.2-0.9) 02/27/22 08:49 Eos # (Auto) 0.2 10^3/uL (0.0-0.8) 02/27/22 08:49 Baso # (Auto) 0.1 10^3/uL (0.0-0.1) 02/27/22 08:49 Nucleated RBC % (auto) 0 % 02/27/22 08:49 Nucleated RBCs # 0.0 /100WBC 02/27/22 08:49 Sodium 139 mmol/L (136-145) 02/27/22 08:49 Potassium 4.7 mmol/L (3.5-5.1) 02/27/22 08:49 Chloride 102 mmol/L (98-107) 02/27/22 08:49 Carbon Dioxide 26 mmol/L (22-29) 02/27/22 08:49 Anion Gap 15.7 (5-19) 02/27/22 08:49 BUN 23 mg/dL (8-23) 02/27/22 08:49 Creatinine 0.8 mg/dL (0.7-1.2) 02/27/22 08:49 GFR Calculation Not Reportable 02/27/22 08:49 Glucose 104 mg/dL (65-115) 02/27/22 08:49 Calculated Osmolality 292 mOsm/kg (285-295) 02/27/22 08:49 Lactic Acid 1.4 mmol/L (0.5-2.2) 02/27/22 08:49 Calcium 9.5 mg/dL (8.5-10.5) 02/27/22 08:49 Magnesium 2.1 mg/dL (1.7-2.3) 02/27/22 08:49 Total Bilirubin 0.7 mg/dL (0.15-1.2) 02/27/22 08:49 AST 48 U/L (0-40) H 02/27/22 08:49 ALT 86 U/L (0-41) H 02/27/22 08:49 Alkaline Phosphatase 59 U/L (40-130) 02/27/22 08:49 Creatine Kinase 199 U/L (39-308) 02/27/22 08:49 Troponin T Baseline 22 ng/L (0-15) H 02/27/22 08:49 Troponin T 120 Minute 21.49 ng/L (0-15) H 02/27/22 11:15 Delta Troponin T -0.51 ABS# (0-10) L 02/27/22 11:15 NT-Pro-B Natriuret Pep 1469 pg/mL (0-125) H 02/27/22 08:49 Total Protein 7.1 g/dL (6.6-8.7) 02/27/22 08:49 Albumin 4.3 g/dL (3.5-5.2) 02/27/22 08:49 Globulin 2.8 g/dL (1.3-4.6) 02/27/22 08:49 TSH 0.32 uIU/mL (0.27-4.20) 02/27/22 08:49 Urine Color Yellow (Yellow) 02/27/22 09:53 Urine Appearance Clear (CLEAR) 02/27/22 09:53 Urine pH 5 (5-7) 02/27/22 09:53 Ur Specific [place] 1.020 (1.005-1.030) 02/27/22 09:53 Urine Protein 2+ (Negative) H 02/27/22 09:53 Urine Glucose (UA) Norm (Normal) 02/27/22 09:53 Urine Ketones Negative (Negative) 02/27/22 09:53 Urine Blood Neg (Negative) 02/27/22 09:53 Urine Nitrate Negative (Negative) 02/27/22 09:53 Urine Bilirubin Neg (Negative) 02/27/22 09:53 Urine Urobilinogen Neg mg/dL (Negative) 02/27/22 09:53 Ur Leukocyte Esterase Negative (Negative) 02/27/22 09:53 Urine RBC Rare /hpf (0-2) 02/27/22 09:53 Urine WBC Rare /hpf (0-5) 02/27/22 09:53 Ur Squamous Epith Cells Rare /hpf (0-5) 02/27/22 09:53 Amorphous Sediment Not Reportable 02/27/22 09:53 Urine Bacteria None /hpf (NONE) 02/27/22 09:53 Hepatitis A IgM Ab Non-reactive (Nonreactive) 02/27/22 08:49 Hep Bs Antigen Non-reactive (Nonreactive) 02/27/22 08:49 Hep B Core IgM Ab Non-reactive (Nonreactive) 02/27/22 08:49 Hepatitis C Antibody Non-reactive (Nonreactive) 02/27/22 08:49 Discharge Plan Discharge Patient Disposition: Placed in Observation Admit Provider: Quique Hernandez Clinical Impression: Congestive heart failure, Bradycardia, Prostate cancer, Diabetes mellitus Coding Level of Care Code ED [place] Fishing Crew Member for Yusef Emanuel
[2022-02-27 09:23] LABS: Lactic Sepsis W/Reflex 1.4 mmol/L (0.5-2.2)
[2022-02-27] MEDS: FUROsemide 10 mg/mL SDV 10mL 60 MG IVP ×2 (09:23→20:58)
[2022-02-27 09:39] LABS: Alanine Aminotransferase 86 U/L (0-41); Albumin Level 4.3 g/dL (3.5-5.2); Alkaline Phosphatase 59 U/L (40-130); Blood Urea Nitrogen 23 mg/dL (8-23); Calcium 9.5 mg/dL (8.5-10.5); Carbon Dioxide 26 mmol/L (22-29); Chloride 102 mmol/L (98-107); Creatine Phosphokinase 199 U/L (39-308); Globulin 2.8 g/dL (1.3-4.6); Glucose 104 mg/dL (65-115); NT Pro B Type Natriuretic Pept 1469 pg/mL (0-125); Osmolality Calculated 292 mOsm/kg (285-295); Sodium 139 mmol/L (136-145); Total Bilirubin 0.7 mg/dL (0.15-1.2); Total Protein 7.1 g/dL (6.6-8.7)
[2022-02-27 09:46] LABS: Anion Gap 15.7 (5-19); Aspartate Amino Transferase 48 U/L (0-40); Potassium 4.7 mmol/L (3.5-5.1)
--- NOTE | 2022-02-27 10:03 | PC.NURSE ---
PT SITTING UP ON SIDE OF BED TO VOID. PT PLACED ON CONTINUOUS NIBP, SPO2, AND CM
[2022-02-27 10:23] LABS: Add Urine Microscopic? YES; Bilirubin Urine Neg (Negative); Blood Urine Neg (Negative); Glucose Urine UA Norm (Normal); Ketones Urine Negative (Negative); Leukocyte Esterase Urine Negative (Negative); Nitrate Urine Negative (Negative); Protein Urine 2+ (Negative); Urine Appearance Clear (CLEAR); Urine Color Yellow (Yellow); Urobilinogen Urine Neg (Negative); pH Urine 5 (5-7)
[2022-02-27 10:24] LABS: Add Urine Culture? No; RBC Urine RARE /hpf (0-2); Squamous Epithelial Cell Urine RARE /hpf (0-5); WBC Urine RARE /hpf (0-5)
[2022-02-27 10:32] LABS: Troponin(5th) Baseline 22 ng/L (0-15)
[2022-02-27] MEDS: cefTRIAXone 1,000 MG in sodium chloride 0.9% (plus) 50 ML 100 MG IV (10:47)
[2022-02-27] MEDS: azithromycin 500 MG in sodium chloride 0.9% 250 ML 250 MG IV (11:36)
[2022-02-27 11:57] LABS: Troponin 5 2HR 21.49 ng/L (0-15); Troponin 5 2HR Delta -0.51 ABS# (0-10)
--- NOTE | 2022-02-27 12:13 | ECG_ITS ---
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 Measurements Intervals [place] Rate: 49 P: 0 MN: 0 QRS: -7 QRSD: 98 T: 7 QT: 428 QTc: 386 Interpretive Statements ATRIAL FIBRILLATION WITH SLOW VENTRICULAR RESPONSE ANTEROSEPTAL MYOCARDIAL INFARCTION , PROBABLY OLD [40+ ms Q WAVE IN V1-V4] Compared to ECG 02/27/2022 08:53:13 Supraventricular rhythm no longer present Myocardial infarct finding still present Electronically Signed On 02-27-2022 19:02:33 SIGN WIRER by Umberto Gonsalez M.D. [id number]
--- NOTE | 2022-02-27 12:36 | PM.HP ---
Providers/Chief Complaint Admitting Physician: Quique Hernandez MD Primary Care Provider: Zak Hatch MD Chief Complaint: Low Heart Rate SOB History of Present Illness Juvencio Lacy is a 71 year old male who presented to urology clinic today reporting shortness of breath over at least the last week and low heart rate in the 30s. He reports increased swelling, particularly his left leg. He denies any chest pain. He has an occasional cough. No fever, no real productivity to the cough. Denies symptoms like this before although he does carry some chronic edema in his legs. No new medications. Found to have a heart rate in the mid 30s and urology clinic. In the emergency department he was given some Rocephin, azithromycin, and some Lasix 60 mg IV. Review of Systems General: Reports: 10 or more systems reviewed and unremarkable except in HPI and below Const: Reports: fatigue and malaise; Denies: fever(s) or chills Eyes: Denies: change in vision ENMT: Denies: throat pain Card: Reports: swelling of feet/ankles and dyspnea on exertion; Denies: chest pain Resp: Reports: dyspnea; Denies: productive cough GI: Denies: abdominal pain, nausea, vomiting, hematochezia or melena : Denies: flank pain Musc: Denies: neck pain Skin/Breast: Denies: rash Neuro: Denies: headache(s) Psych: Denies: anxiety or depression Endo: Denies: polyuria [place]/Lymph: Denies: easy bruising All/Imm: Denies: urticaria Medications/Allergies Home Medications Medication Instructions Recorded Confirmed Last Taken Type dapagliflozin 10 mg tablet 10 mg PO QAM #30 tabs 12/17/21 02/27/22 02/26/22 Rx (Farxial) amlodipine 5 mg tablet 5 mg PO DAILY 12/20/21 02/27/22 02/26/22 History metoprolol succinate 50 mg 50 mg PO BEDTIME 12/20/21 02/27/22 02/26/22 History tablet,extended release 24 hr triamcinolone acetonide 0.1 % 1 applic topical BID #80 grams 12/31/21 02/27/22 Unknown Rx topical ointment Allergies Allergy/AdvReac Type Severity Reaction Status Date / Time No Known Allergies Allergy Verified 02/27/22 08:04 PFSH Acute PFSH: Medical History (Updated 02/27/22 @ 12:48 by Quique Hernandez MD) BPH w urinary obs/LUTS Diabetes mellitus Elevated PSA Erectile dysfunction Gout Hypertension Prostate cancer Ureterolithiasis Ureteropelvic junction (UPJ) obstruction Surgical History History of urethral stent Family History Mother , 63 Cancer Brain tumor Father , 53-[place] CAD (coronary artery disease) Hypertension Social History (Updated 02/27/22 @ 12:39 by Quique Hernandez MD) Smoking and tobacco status: never smoked Alcohol intake: former Adopted: No Caregiver/support person: No Marital status: Current occupational status: retired History of recent travel: No Current gender identity: Male Vitals/I&O/Wt Last Vital Signs Temp 98.6 F 02/27/22 08:36 Pulse 60 02/27/22 11:30 Resp 19 H 02/27/22 11:30 BP 121/92 02/27/22 11:30 Pulse Ox 95 02/27/22 11:30 O2 Del Method 02/27/22 09:11 02/26/22 02/27/22 02/27/22 22:59 06:59 14:59 Intake Total 50 / 50 Balance 50 / 50 Weight last 48 hrs Weight 122.47 kg Physical Exam Narrative: General exam is a white male, in no distress HEENT: Atraumatic normocephalic. Pupils equally round. Oropharynx clear. Neck is supple no lymphadenopathy thyromegaly Cardiovascular regular rate and rhythm with frequent premature beats. No murmur Lungs diminished breath sounds at the bases but clear and without wheezing Abdomen is soft nontender positive bowel sounds and obese. No obvious organomegaly exam was deferred Extremities show no cyanosis or clubbing. Edema is present bilaterally left greater than right with some ichthyosis. No evidence of cellulitis Skin no rash Neuro no focal deficits Data 02/27/22 08:49 02/27/22 08:49 Other Labs: Initial EKG demonstrates bigeminy, with a rate of approximately 70. I believe his underlying rhythm is sinus, with frequent PVCs. There is a lot of artifact and her EKG has been repeated. Poor R wave progression is noted. Chest x-ray mild congestive heart failure changes, cardiomegaly AST and ALT slightly high at 48 and 86 Troponin 22 with repeat of 21 Lactic acid, calcium normal Urinalysis 2+ protein otherwise negative Micro: Microbiology 02/27/22 11:16 Blood Culture - Preliminary Blood SPECIMEN COLLECTED 02/27/22 11:15 Blood Culture - Preliminary Blood SPECIMEN COLLECTED A&P Assessment and plan (1) Bradycardia: Patient with significant bradycardia recorded at home as well as urology clinic Continue telemetry Hold beta-juani I suspect his underlying rhythm is sinus with occasional PVCs. Confirm this with repeat EKG Check TSH Check magnesium level (2) Congestive heart failure: Appears to have acute diastolic congestive heart failure Continue diuresis 60 mg IV every 12 hours No symptomatology to suggest pneumonia currently. Will not continue antibiotics. Check echocardiogram (3) Transaminitis: Likely secondary to congestive heart failure Check hepatitis panel Repeat laboratory in the morning (4) Diabetes mellitus: Mild sliding scale insulin Consistent carb diet Plan Multiple other medical problems as outlined in past medical history Full code Lovenox for DVT prophylaxis Attestations Medical Necessity Statement*: Will likely need less than 2 midnight stay for evaluation of congestive heart failure and bradycardia Coding Level of Care Code Acute Community Associate for [facility] Fwd Diagnoses Bradycardia R00.1 Congestive heart failure I50.9 Transaminitis R74.01 Diabetes mellitus E11.9
--- NOTE | 2022-02-27 12:42 | USCV_ITS ---
Juvencio Lacy Age: 71 Gender: M : 1950 Exam Date: 02/27/2022 13:23 Ordering Phys: Quique Hernandez MD Technologist: Thierry Daniel [place] [facility] [place]: chf pedal edema BP: 121 / 71 HR: 51 Rhythm: Sinus Technical Quality: Adequate MEASUREMENTS (Male / Female) Normal Values 2D ECHO LV Diastolic Diameter PLAX 5.0 cm 4.2 - 5.9 / 3.9 - 5.3 cm LV Systolic Diameter PLAX 2.4 cm IVS Diastolic Thickness 1.2 cm 0.6 - 1.0 / 0.6 - 0.9 cm IVS Systolic Thickness 1.5 cm LVPW Diastolic Thickness 1.3 cm 0.6 - 1.0 / 0.6 - 0.9 cm LVPW Systolic Thickness 1.8 cm LVOT Diameter 2.0 cm LV Ejection Fraction 2D Teich 82.1 % LV Ejection Fraction MOD 2C 76.9 % LV Ejection Fraction 2C AL 76.3 % LA Diameter 4.4 cm Aorta at Sinotubular Diameter 3.5 cm DOPPLER AV Peak Velocity 124.0 cm/s LVOT Peak Velocity 90.0 cm/s AV Area Cont Eq vti 2.7 cm squared AV Area Cont Eq pk 2.4 cm squared MV Area PHT 5.0 cm squared Mitral E to A Ratio 3.2 MV E' Velocity 57.5 cm/s Mitral E to MV E' Ratio 15.5 Mitral E to LV E' Lateral Ratio 10.0 Mitral E to LV E' Septal Ratio 35.1 TR Peak Velocity 214.0 cm/s TR Peak Gradient 18.3 mmHg Right Atrial Pressure 3.0 mmHg Pulmonary Artery Systolic Pressu 21.3 mmHg RV Acceleration Time 0.1 s FINDINGS Left Ventricle Normal left ventricular size and systolic function, EF 66 %. Mild left ventricular hypertrophy. Right Ventricle Possibly of normal-size and ejection fraction Right Atrium Mildly increased right atrial size. Left Atrium Mildly increased left atrial size. Mitral Valve Trace to mild mitral valve regurgitation. Aortic Valve MinimallyThickened aortic valve. Tricuspid Valve Trace tricuspid valve regurgitation. Pulmonic Valve Pulmonic valve not well visualized. Pericardium No pericardial effusion. Aorta Normal aortic annulus size. IVC Inferior vena cava not visualized. CONCLUSIONS Normal left ventricular size and systolic function, EF 66 %. Mild left ventricular hypertrophy. Type I diastolic dysfunction. Mild biatrial enlargement Trace of aortic and tricuspid reviewed patient Trace to mild mitral regurgitation There is no pericardial effusion. There are no intracardiac masses. Compared to the previous study from 08/01/2018, there may not be a significant change. Because of technical difficulties, etc. comparison is difficult. Echo contrast was used to delineate the endocardium and estimate LV ejection fraction Dr Everett Roque MD [facility] (Electronically Signed) Final Date: 28 February 2022 08:23 S
--- NOTE | 2022-02-27 12:42 | USCV_ITS ---
IsisJuvencio funk Age: 71 Gender: M : 1950 Exam Date: 02/27/2022 13:41 Ordering Phys: Quique Hernandez MD Technologist: Thierry Daniel [place] [facility] [place]ication: bilat edema PROCEDURES: The venous duplex Doppler examination of both lower extremities was performed in the standard fashion. The following venous structures were evaluated: common femoral vein, profunda vein, proximal portion of the greater saphenous vein, superficial femoral vein, and the popliteal vein. In addition, the posterior tibial and peroneal trunk were evaluated. FINDINGS: Normal 2-D Doppler and augmentation and compressibility throughout the lower extremity venous structures. Additional imaging through the proximal calf veins also reveals no thrombus. Limited evaluation of the greater saphenous vein is patent with no thrombus.. CONCLUSIONS No evidence of right lower extremity DVT. No evidence of left lower extremity DVT. Frederick Pollack MD (Electronically Signed) Final Date: 27 February 2022 14:55 S
--- NOTE | 2022-02-27 12:45 | PC.NURSE ---
PT VOIDED APPROX 4,000 ML WHILE IN THE ED
--- NOTE | 2022-02-27 13:10 | ECG_ITS ---
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 Measurements Intervals [place] Rate: 53 P: 0 MS: 0 QRS: -4 QRSD: 94 T: 3 QT: 433 QTc: 408 Interpretive Statements ATRIAL FIBRILLATION WITH SLOW VENTRICULAR RESPONSE ANTEROSEPTAL MYOCARDIAL INFARCTION , PROBABLY OLD [40+ ms Q WAVE IN V1-V4] Compared to ECG 02/27/2022 12:37:37 No significant changes Electronically Signed On 02-27-2022 19:01:48 TRAFFIC TECHNICIAN by Umberto Gonsalez M.D. [id number]
[2022-02-27 13:34] LABS: Magnesium 2.1 mg/dL (1.7-2.3)
[2022-02-27 13:36] LABS: Thyroid Stimulating Hormone 0.32 uIU/mL (0.27-4.20)
[2022-02-27 13:40] LABS: Hepatitis A Antibody IgM Non-Reactive (Nonreactive); Hepatitis B Core IgM Non-Reactive (Nonreactive); Hepatitis B Surface Antigen Non-Reactive (Nonreactive); Hepatitis C Virus Antibody Non-Reactive (Nonreactive)
[2022-02-27] MEDS: enoxaparin 40 mg/0.4 mL Syringe SUBCUT (13:40)
[2022-02-27] MEDS: perflutren protein-a microsphr 0.22 mg/mL SDV 3 mL IV (14:03)
--- NOTE | 2022-02-27 16:13 | ECG_ITS ---
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 Measurements Intervals [place] Rate: 51 P: 0 VA: 0 QRS: -10 QRSD: 110 T: -11 QT: 420 QTc: 389 Interpretive Statements ATRIAL FIBRILLATION WITH SLOW VENTRICULAR RESPONSE ANTEROSEPTAL MYOCARDIAL INFARCTION , OF INDETERMINATE AGE [40+ ms Q WAVE IN V1-V4] Compared to ECG 02/27/2022 13:10:33 No significant changes Electronically Signed On 02-27-2022 19:01:35 DISMANTLER by Umberto Gonsalez M.D. [id number]
[2022-02-27 17:34] LABS: Glucose Point of Care 137 mg/dL (70-110)
[2022-02-27 21:09] LABS: Glucose Point of Care 102 mg/dL (70-110)
[2022-02-27] MEDS: acetaminophen 325 mg Tablet 650 MG PO (22:44)
[2022-02-28 03:46] LABS: Basophils # 0.1 10^3/uL (0.0-0.1); Basophils % 1.6 %; Eosinophils # 0.3 10^3/uL (0.0-0.8); Eosinophils % 3.7 %; Hematocrit 45.7 % (42.0-52.0); Hemoglobin 14.6 g/dL (11.7-16.6); Lymphocytes # 1.3 10^3/uL (0.8-4.8); Lymphocytes % 19.1 %; Mean Corpuscular HGB Conc 31.9 g/dL (30.0-36.0); Mean Corpuscular Hemoglobin 28.5 pg (28.0-34.0); Mean Corpuscular Volume 89.3 fl (80-94); Mean Platelet Volume 10.7 fL (7.4-10.4); Monocytes # 0.7 10^3/uL (0.2-0.9); Monocytes % 9.7 %; Neutrophils # 4.47 10^3/uL (1.8-7.7); Neutrophils % 65.6 %; Nucleated Red Blood Cells % 0 %; Platelet Count 211 10^3/cmm (130-400); Red Blood Count 5.12 10^6/uL (4.1-5.3); Red Cell Distribution Width 14.4 % (12.1-15.1); White Blood Count 6.8 10^3/uL (4.0-10.0)
[2022-02-28 04:00] VITALS: BP 121/74; PULSE 54; RESP 18; TEMP 36.8; O2SAT 98
[2022-02-28 04:02] LABS: Alanine Aminotransferase 82 U/L (0-41); Albumin Level 4.3 g/dL (3.5-5.2); Alkaline Phosphatase 55 U/L (40-130); Anion Gap 15.1 (5-19); Aspartate Amino Transferase 44 U/L (0-40); Blood Urea Nitrogen 23 mg/dL (8-23); Calcium 9.7 mg/dL (8.5-10.5); Carbon Dioxide 28 mmol/L (22-29); Chloride 100 mmol/L (98-107); Globulin 2.5 g/dL (1.3-4.6); Glucose 101 mg/dL (65-115); Osmolality Calculated 292 mOsm/kg (285-295); Potassium 4.1 mmol/L (3.5-5.1); Sodium 139 mmol/L (136-145); Total Bilirubin 0.9 mg/dL (0.15-1.2); Total Protein 6.8 g/dL (6.6-8.7)
[2022-02-28 04:15] LABS: Magnesium 2.1 mg/dL (1.7-2.3)
--- NOTE | 2022-02-28 05:23 | PC.NURSE ---
Patient heart rate throughout shift remained afib with slow ventricular rate ranging from 34-60s, primarily staying in the 40s and 50s. Patient did have a couple pauses, the first measuring 2.5 second and second 3 second with slow rate. Additionally, he was noted to go into a bigeminal rhythm several times. Strips printed and placed in chart. Patient remained asymptomatic.
[2022-02-28 05:59] VITALS: PULSE 46
[2022-02-28 06:39] LABS: Glucose Point of Care 108 mg/dL (70-110)
[2022-02-28 07:22] LABS: Glucose Point of Care 96 mg/dL (70-110)
--- NOTE | 2022-02-28 07:33 | P.PN_ITS ---
Subjective Subjective: Juvencio reports he feels much better. Denies any shortness of breath. Has less swelling. No chest discomfort. Does not have any dizziness. Medications: Reviewed: Yes Vitals/I&O/Wt Last Vital Signs Temp 98.3 F 02/28/22 04:00 Pulse 46 L 02/28/22 05:59 Resp 18 02/28/22 04:00 BP 121/74 02/28/22 04:00 Pulse Ox 98 02/28/22 04:00 O2 Del Method 02/27/22 20:00 02/27/22 02/28/22 02/28/22 22:59 06:59 14:59 Intake Total 350 / 650 Output Total 2200 / 2200 2200 / 4400 Balance -1850 / -1550 -2200 / -3750 Weight last 48 hrs Weight 122.47 kg Physical Exam Narrative: General exam is a white male, in no distress. Telemetry overnight demonstrates atrial fibrillation with slow rate, in the 30s at times. When I awakened him he was 60-65 Neck is supple no lymphadenopathy thyromegaly Cardiovascular regular rate and rhythm with frequent premature beats. No murmur Lungs diminished breath sounds at the bases but clear and without wheezing Abdomen is soft nontender positive bowel sounds and obese. No obvious organomegaly Extremities show no cyanosis or clubbing. Edema is improved Skin no rash Data 02/28/22 03:08 02/28/22 03:08 Micro: Microbiology 02/27/22 11:16 Blood Culture - Preliminary Blood SPECIMEN COLLECTED 02/27/22 11:15 Blood Culture - Preliminary Blood SPECIMEN COLLECTED A&P Assessment and plan (1) Bradycardia: Patient with significant bradycardia recorded at home as well as urology clinic Continue telemetry Hold beta-juani. It has now been held for over 48 hours He is still bradycardic when sleeping. Underlying rhythm appears to be atrial fibrillation/flutter. TSH and magnesium level checked and normal Qualifies for anticoagulation. I discussed with him the risks and benefits. He is amenable to taking this upon discharge. (2) Congestive heart failure: Appears to have acute diastolic congestive heart failure Change diuresis to p.o. He is significantly improved. No symptomatology to suggest pneumonia currently. Will not continue antibiotics. Echocardiogram obtained. Preliminary indicates normal EF, no aortic stenosis. Final reading pending. (3) Transaminitis: Likely secondary to congestive heart failure Overall about the same Hepatitis panel negative overall about the (4) Diabetes mellitus: Mild sliding scale insulin Consistent carb diet Plan Multiple other medical problems as outlined in past medical history Full code Lovenox for DVT prophylaxis Attestations Medical Necessity Statement*: Await cardiology evaluation. May need pacemaker at some point Coding Level of Care Code Acute Addictions Recovery Specialist for g Fwd Diagnoses Bradycardia R00.1 Congestive heart failure I50.9 Transaminitis R74.01 Diabetes mellitus E11.9
--- NOTE | 2022-02-28 07:57 | PM.CONSULT ---
Providers/Reason For Consult Consulting Physician/Specialty*: Dr. HARMONY Roque/cardiology Reason for Consult*: Atrial fibrillation bradycardia, CHF Requesting Physician: Dr Hernandez Attending Physician: Quique Hernandez MD Primary Care Provider: Zak Hatch MD History of Present Illness History of Present Illness Juvencio Lacy is a 71 year old male with a history of hypertension, both admitted to the hospital yesterday from her doctor's office where he was supposed to undergo a scheduled surgical procedure. Currently was found to be bradycardic with a heart rate in the 30s. He also has been having shortness of breath and leg swelling for the last 2 weeks. Patient was found to be in atrial fibrillation with a slow ventricular response rate. He also had features of congestive heart failure. Cardiology consult is requested for further cardiac evaluation recommendations. Patient has no previous history for heart failure or atrial fibrillation. He has a history of high blood pressure for more than 6 years. Apparently he started taking medications only 6 months ago on a regular basis. Prior to this, he may have taken blood pressure medicine for a year or so. He never been diagnosed with atrial fibrillation prior to this hospital admission. His shortness of breath has been mostly exertional. Denies any orthopnea or PND. The swelling of the lower extremity has been progressive. Denies any fever or chills. No cough. Denies any palpitation or syncopal episodes. He has been having episodes of dizziness. The patient, he was placed on metoprolol sometime ago for blood pressure. He was taken off this medication because of the dizziness. Apparently he was placed on metoprolol and amlodipine for blood pressure control 6 months ago. He has been doing okay up until 2 weeks ago when he started having shortness of breath and some dizziness. He was found to have elevated BNP. Echocardiogram revealed normal LV size ejection fraction with evidence of left-ventricular diastolic dysfunction. EKG showed evidence of atrial fibrillation with a slow ventricular response rate. The telemetry showed a heart rate in the 30s and low 40s during the night. Apparently the heart rate gets up into the 60s and 70s has to get up and move around. The last dose of metoprolol was the day before yesterday around 3:00 in the afternoon Patient has no previous history for coronary artery disease, myocardial infarction or congestive heart failure. No history for any cardiac arrhythmia. He never had any syncopal episodes. Review of Systems Narrative: CONSTITUTIONAL: No fever or chills. Exertional dyspnea as mentioned above EYES: No blurring of vision or other visual disturbances lately. ENT: No hoarseness of voice, auditory disturbances or sore throat. CARDIOVASCULAR: As mentioned above. RESPIRATORY: No significant cough. GASTROINTESTINAL: No hematemesis or melena. GENITOURINARY: No dysuria or hematuria. INTEGUMENTARY: No skin rashes or history of skin cancer. NEURO: No transient ischemic attacks or amaurosis. PSYCHIATRIC: No history of psychosis or major depression. HEMATOLOGIC: No bleeding disorders or significant anemia. ENDOCRINE: No history of polyuria or polydipsia. MUSCULOSKELETAL: Lower extremity swelling as mentioned above ALLERGY/IMMUNOLOGY: As mentioned above. Medications/Allergies Home Medications Medication Instructions Recorded Confirmed Last Taken Type dapagliflozin 10 mg tablet 10 mg PO QAM #30 tabs 12/17/21 02/27/22 02/26/22 Rx (Farxiga) amlodipine 5 mg tablet 5 mg PO DAILY 12/20/21 02/27/22 02/26/22 History metoprolol succinate 50 mg 50 mg PO BEDTIME 12/20/21 02/27/22 02/26/22 History tablet,extended release 24 hr triamcinolone acetonide 0.1 % 1 applic topical BID #80 grams 12/31/21 02/27/22 Unknown Rx topical ointment Allergies Allergy/AdvReac Type Severity Reaction Status Date / Time No Known Allergies Allergy Verified 02/27/22 08:04 Current Medications Generic Name Dose Route Start Last Admin Trade Name Freq PRN Reason Stop Dose Admin Acetaminophen 650 mg 02/27/22 13:12 02/27/22 22:44 Acetaminophen 325 Mg Tablet PO 650 mg Q6H PRN Administration Mild/Mod Pain Or Temp >/= 101 Enoxaparin Sodium 40 mg 02/27/22 13:33 02/27/22 13:40 Enoxaparin 40 Mg/0.4 Ml Syringe SUBCUT 40 mg Q24H JACQUI Administration Insulin Human Lispro 0 unit 02/27/22 18:00 02/27/22 20:59 Insulin Lispro 100 Unit/1 Ml SUBCUT Not Given WM&BEDTIME JACQUI Protocol Non-Formulary Medication 10 mg 02/28/22 06:00 02/28/22 05:06 Dapagliflozin [Farxiga] PO Not Given QAM JACQUI PFSH Acute PFSH: Medical History BPH w urinary obs/LUTS Diabetes mellitus Elevated PSA Erectile dysfunction Gout Hypertension Prostate cancer Ureterolithiasis Ureteropelvic junction (UPJ) obstruction Surgical History History of urethral stent Family History Mother , 63 Cancer Brain tumor Father , 53-[place] CAD (coronary artery disease) Hypertension Social History Smoking and tobacco status: never smoked Alcohol intake: former Adopted: No Caregiver/support person: No Marital status: Current occupational status: retired History of recent travel: No Current gender identity: Male Vitals/I&O/Wt Last Vital Signs Temp 98.3 F 02/28/22 04:00 Pulse 46 L 02/28/22 05:59 Resp 18 02/28/22 04:00 BP 121/74 02/28/22 04:00 Pulse Ox 98 02/28/22 04:00 O2 Del Method 02/27/22 20:00 02/27/22 02/28/22 02/28/22 22:59 06:59 14:59 Intake Total 350 / 650 Output Total 2200 / 2200 2200 / 4400 Balance -1850 / -1550 -2200 / -3750 Weight last 48 hrs Weight 270 lb Physical Exam Narrative: GENERAL: The patient is alert and oriented times three. Not in any acute distress. Obese HEENT: No significant pallor, icterus or lymphadenopathy.Oral cavity: There are no mucous membrane lesions. NECK: Trachea appears to be central. No masses noted. No JVD or thyromegaly appreciated. RESPIRATORY: Chest is symmetrical. No intercostals muscle retraction or any accessory muscle activation. There is no chest wall tenderness. Breath sounds are heard bilaterally. No rales or rhonchi heard. No evidence of any consolidation. BREASTS: Deferred. HEART: The first heart sound is variable. Second heart sound is normal. No S3 or S4. No significant murmurs. No pericardial rub ABDOMEN: No vessel pulsations or distention. No tenderness. No organomegaly appreciated. Bowel sounds are normally heard. : Deferred. RECTAL: Deferred. LYMPHATIC: No lymphadenopathy noted in the neck. EXTREMITIES: 1-2+ edema both lower extremities. No cyanosis. MUSCULOSKELETAL: No acute joint deformities or swelling SKIN: There are no significant rashes or ecchymosis NEUROPSYCHIATRIC: The patient is alert and oriented x3. Appears to be in a good mood. No tremors or rigidity noted. Data 02/28/22 03:08 02/28/22 03:08 Other Labs: Laboratory Last Values WBC 6.8 10^3/uL (4.0-10.0) 02/28/22 03:08 RBC 5.12 10^6/uL (4.1-5.3) 02/28/22 03:08 Hgb 14.6 g/dL (11.7-16.6) 02/28/22 03:08 Hct 45.7 % (42.0-52.0) 02/28/22 03:08 MCV 89.3 fl (80-94) 02/28/22 03:08 MCH 28.5 pg (28.0-34.0) 02/28/22 03:08 MCHC 31.9 g/dL (30.0-36.0) 02/28/22 03:08 RDW 14.4 % (12.1-15.1) 02/28/22 03:08 Plt Count 211 10^3/cmm (130-400) 02/28/22 03:08 MPV 10.7 fL (7.4-10.4) H 02/28/22 03:08 Neut % (Auto) 65.6 % 02/28/22 03:08 Lymph % (Auto) 19.1 % 02/28/22 03:08 [place] % (Auto) 9.7 % 02/28/22 03:08 Eos % (Auto) 3.7 % 02/28/22 03:08 Baso % (Auto) 1.6 % 02/28/22 03:08 Neut # (Auto) 4.47 10^3/uL (1.8-7.7) 02/28/22 03:08 Lymph # (Auto) 1.3 10^3/uL (0.8-4.8) 02/28/22 03:08 [place] # (Auto) 0.7 10^3/uL (0.2-0.9) 02/28/22 03:08 Eos # (Auto) 0.3 10^3/uL (0.0-0.8) 02/28/22 03:08 Baso # (Auto) 0.1 10^3/uL (0.0-0.1) 02/28/22 03:08 Nucleated RBC % (auto) 0 % 02/28/22 03:08 Nucleated RBCs # 0.0 /100WBC 02/28/22 03:08 Sodium 139 mmol/L (136-145) 02/28/22 03:08 Potassium 4.1 mmol/L (3.5-5.1) 02/28/22 03:08 Chloride 100 mmol/L (98-107) 02/28/22 03:08 Carbon Dioxide 28 mmol/L (22-29) 02/28/22 03:08 Anion Gap 15.1 (5-19) 02/28/22 03:08 BUN 23 mg/dL (8-23) 02/28/22 03:08 Creatinine 0.9 mg/dL (0.7-1.2) 02/28/22 03:08 GFR Calculation Not Reportable 02/28/22 03:08 Glucose 101 mg/dL (65-115) 02/28/22 03:08 POC Glucose 96 mg/dL (70-110) 02/28/22 07:09 Calculated Osmolality 292 mOsm/kg (285-295) 02/28/22 03:08 Lactic Acid 1.4 mmol/L (0.5-2.2) 02/27/22 08:49 Calcium 9.7 mg/dL (8.5-10.5) 02/28/22 03:08 Magnesium 2.1 mg/dL (1.7-2.3) 02/28/22 03:08 Total Bilirubin 0.9 mg/dL (0.15-1.2) 02/28/22 03:08 AST 44 U/L (0-40) H 02/28/22 03:08 ALT 82 U/L (0-41) H 02/28/22 03:08 Alkaline Phosphatase 55 U/L (40-130) 02/28/22 03:08 Creatine Kinase 199 U/L (39-308) 02/27/22 08:49 Troponin T Baseline 22 ng/L (0-15) H 02/27/22 08:49 Troponin T 120 Minute 21.49 ng/L (0-15) H 02/27/22 11:15 Delta Troponin T -0.51 ABS# (0-10) L 02/27/22 11:15 Troponin T Hi Sens 6Hr 20.60 ng/L (0-15) H 02/27/22 15:35 Troponin T Hi Sens 6Hr Delta -1.40 ng/L (0-12) L 02/27/22 15:35 NT-Pro-B Natriuret Pep 1469 pg/mL (0-125) H 02/27/22 08:49 Total Protein 6.8 g/dL (6.6-8.7) 02/28/22 03:08 Albumin 4.3 g/dL (3.5-5.2) 02/28/22 03:08 Globulin 2.5 g/dL (1.3-4.6) 02/28/22 03:08 TSH 0.32 uIU/mL (0.27-4.20) 02/27/22 08:49 Urine Color Yellow (Yellow) 02/27/22 09:53 Urine Appearance Clear (CLEAR) 02/27/22 09:53 Urine pH 5 (5-7) 02/27/22 09:53 Ur Specific [place] 1.020 (1.005-1.030) 02/27/22 09:53 Urine Protein 2+ (Negative) H 02/27/22 09:53 Urine Glucose (UA) Norm (Normal) 02/27/22 09:53 Urine Ketones Negative (Negative) 02/27/22 09:53 Urine Blood Neg (Negative) 02/27/22 09:53 Urine Nitrate Negative (Negative) 02/27/22 09:53 Urine Bilirubin Neg (Negative) 02/27/22 09:53 Urine Urobilinogen Neg mg/dL (Negative) 02/27/22 09:53 Ur Leukocyte Esterase Negative (Negative) 02/27/22 09:53 Urine RBC Rare /hpf (0-2) 02/27/22 09:53 Urine WBC Rare /hpf (0-5) 02/27/22 09:53 Ur Squamous Epith Cells Rare /hpf (0-5) 02/27/22 09:53 Amorphous Sediment Not Reportable 02/27/22 09:53 Urine Bacteria None /hpf (NONE) 02/27/22 09:53 Hepatitis A IgM Ab Non-reactive (Nonreactive) 02/27/22 08:49 Hep Bs Antigen Non-reactive (Nonreactive) 02/27/22 08:49 Hep B Core IgM Ab Non-reactive (Nonreactive) 02/27/22 08:49 Hepatitis C Antibody Non-reactive (Nonreactive) 02/27/22 08:49 Micro: Microbiology 02/27/22 11:16 Blood Culture - Preliminary Blood SPECIMEN COLLECTED 02/27/22 11:15 Blood Culture - Preliminary Blood SPECIMEN COLLECTED Echo: My impression: Normal left ventricular size and systolic function, EF 66 %. ?Mild left ventricular hypertrophy. ?Type I diastolic dysfunction. ?Mild biatrial enlargement ?Trace of aortic and tricuspid reviewed patient ?Trace to mild mitral regurgitation ?There is no pericardial effusion. ?There are no intracardiac masses. ?Compared to the previous study from 08/01/2018, there may not be a ?significant change.? Because of technical difficulties, etc. ?comparison is difficult.? Echo contrast was used to delineate ?the endocardium and estimate LV ejection fraction CXR: Radiologist's impression: 1. Patchy bilateral lower lobe opacities which may represent atelectasis and/or pneumonia. 2. Cardiomegaly and atherosclerosis. EKG 1: My Interpretation: EKG done on 02/27/2022 atrial fibrillation with a slow ventricular response rate of 51 bpm. Poor R wave progression suggesting old anteroseptal infarction. A&P Assessment and plan (1) Atrial fibrillation: This patient apparently never been diagnosed with atrial fibrillation before. His heart rate is under control at this time. He has occasional PVCs and couplets on the monitor. LV ejection fraction is normal. In view of his high thromboembolic risk, he needs to be on long-term oral anticoagulation. (2) Bradycardia: The bradycardia, could be partly due to the medication. He may have an underlying sinus node dysfunction which also could be a contributing factor. The metoprolol is on hold for 36 hours. According the patient, he has no specific symptoms of bradycardia. He is back to his baseline status at this time. The bradycardia was noted on the monitor and is he is resting or sleeping. No prolonged pauses. No history for syncope. (3) Congestive heart failure: Patient has features of congestive heart failure with a preserved LV ejection fraction. He has responded appropriately to diuretics. This may be continued. Possibility of him having underlying coronary artery disease causing diastolic dysfunction also is a consideration. This needs to be further evaluated. May be treated with a careful IV diuresis. I reviewed his echocardiogram and discussed with the patient, the results. . (4) Hypertension: The blood pressure seems to be under control. Since we are taking him off the metoprolol, may consider starting him on an CARLO inhibitor or ARB if the blood pressure start going up. Plan History of diabetes?-May continue treatment as per the primary. Since the patient is badly wanting to go home, it may be appropriate for him to be discharged on an event monitor for 30 days. If he has any symptomatic bradycardia, he requires a permanent pacemaker evaluation. The natural history of atrial fibrillation and the need for permanent pacemaker implantation were discussed with the patient and his in detail which he understood well. May go home with Lasix 40 mg daily with potassium 20 mg, along with Eliquis and other medications. He also we will schedule him for a Lexiscan/sestamibi/sestamibi stress test as an outpatient to evaluate for any underlying coronary artery disease He need to be seen at the cardiology clinic next week by the nurse practitioner. I may see him in the office in 6 weeks Thank you for the opportunity to evaluate this patient and make these recommendations Consult Attestations Medical Necessity Statement: Possible discharge home today Coding Level of Care Code Acute Senior Asic Design Engineer for [place] Fwd History Expanded Problem Focused Exam Detailed Medical Decision Making High Complexity Diagnoses Atrial fibrillation I48.91 Bradycardia R00.1 Congestive heart failure I50.9 Hypertension I10
[2022-02-28 08:00] VITALS: O2SAT 98
--- NOTE | 2022-02-28 09:14 | P.DS_ITS ---
Discharge Providers Date of Admission: 02/27/22 11:29 Date of Discharge: February 28, 2022 Attending Provider at Admission: Quique Hernandez MD Attending Provider at Discharge: Quique Hernandez MD Primary Care Provider: Zak Hatch MD Diagnoses at Discharge Discharge Diagnosis (1) Bradycardia: Status: Acute (2) Congestive heart failure: Status: Acute (3) Transaminitis: Status: Acute (4) Diabetes mellitus: Status: Acute Reason for Visit Reason for Visit: Low Heart Rate SOB Hospital Course Hospital Course Juvencio is a 71-year-old male admitted through urology clinic. He was complaining of dyspnea, edema, low heart rate for the last week. Heart rate was noted to be in the 30s. Electrolytes, TSH, magnesium was normal. Echocardiogram was obtained and preliminary demonstrated no severe aortic stenosis, and preserved EF. After holding his beta-juani overnight telemetry demonstrated some low heart rates in the night in the mid 30s. While awake, heart rate was 60-70. He was markedly better with no significant shortness of breath after diuresis of 3500 mL. He we requested to go home. I consulted cardiology to see him. Secondary to patient's desire they thought it reasonable he go home with an event monitor with close follow-up in cardiology clinic. No further beta-juani. Lasix and potassium were added to his regimen. He will start on Eliquis for A. fib and I discussed with him the risks and benefits including reduction of stroke, and severe bleeding. Him and his were present during the discharge instructions, given an opportunity to ask questions, and agreed with the plan. Physical Exam Narrative: See exam done earlier today. Discharge Data Studies Completed and Pending Completed Studies During Hospitalization Category Date Time Status XR chest 1V portable [id number] Stat Exams 02/27/22 08:53 [place] [id number] Routine Ultrasound 02/27/22 12:42 Completed CV. echo complete* [id number] Routine Ultrasound 02/27/22 12:42 Completed Pending at discharge Category Date Time Status MCT/Event Monitor 30 Days Routine Exams 02/28/22 08:31 Ordered Blood Culture Stat Lab 02/27/22 11:16 Results Sputum Culture and Gram Stain Stat Lab 02/27/22 10:12 Uncollected Radiology Impressions Chest X-Ray 02/27/22 08:53 Impression: 1. Patchy bilateral lower lobe opacities which may represent atelectasis and/or pneumonia. 2. Cardiomegaly and atherosclerosis. Laboratory Results WBC 6.8 10^3/uL (4.0-10.0) 02/28/22 03:08 RBC 5.12 10^6/uL (4.1-5.3) 02/28/22 03:08 Hgb 14.6 g/dL (11.7-16.6) 02/28/22 03:08 Hct 45.7 % (42.0-52.0) 02/28/22 03:08 MCV 89.3 fl (80-94) 02/28/22 03:08 MCH 28.5 pg (28.0-34.0) 02/28/22 03:08 MCHC 31.9 g/dL (30.0-36.0) 02/28/22 03:08 RDW 14.4 % (12.1-15.1) 02/28/22 03:08 Plt Count 211 10^3/cmm (130-400) 02/28/22 03:08 MPV 10.7 fL (7.4-10.4) H 02/28/22 03:08 Neut % (Auto) 65.6 % 02/28/22 03:08 Lymph % (Auto) 19.1 % 02/28/22 03:08 Pender % (Auto) 9.7 % 02/28/22 03:08 Eos % (Auto) 3.7 % 02/28/22 03:08 Baso % (Auto) 1.6 % 02/28/22 03:08 Neut # (Auto) 4.47 10^3/uL (1.8-7.7) 02/28/22 03:08 Lymph # (Auto) 1.3 10^3/uL (0.8-4.8) 02/28/22 03:08 Pender # (Auto) 0.7 10^3/uL (0.2-0.9) 02/28/22 03:08 Eos # (Auto) 0.3 10^3/uL (0.0-0.8) 02/28/22 03:08 Baso # (Auto) 0.1 10^3/uL (0.0-0.1) 02/28/22 03:08 Nucleated RBC % (auto) 0 % 02/28/22 03:08 Nucleated RBCs # 0.0 /100WBC 02/28/22 03:08 Sodium 139 mmol/L (136-145) 02/28/22 03:08 Potassium 4.1 mmol/L (3.5-5.1) 02/28/22 03:08 Chloride 100 mmol/L (98-107) 02/28/22 03:08 Carbon Dioxide 28 mmol/L (22-29) 02/28/22 03:08 Anion Gap 15.1 (5-19) 02/28/22 03:08 BUN 23 mg/dL (8-23) 02/28/22 03:08 Creatinine 0.9 mg/dL (0.7-1.2) 02/28/22 03:08 GFR Calculation Not Reportable 02/28/22 03:08 Glucose 101 mg/dL (65-115) 02/28/22 03:08 POC Glucose 96 mg/dL (70-110) 02/28/22 07:09 Calculated Osmolality 292 mOsm/kg (285-295) 02/28/22 03:08 Lactic Acid 1.4 mmol/L (0.5-2.2) 02/27/22 08:49 Calcium 9.7 mg/dL (8.5-10.5) 02/28/22 03:08 Magnesium 2.1 mg/dL (1.7-2.3) 02/28/22 03:08 Total Bilirubin 0.9 mg/dL (0.15-1.2) 02/28/22 03:08 AST 44 U/L (0-40) H 02/28/22 03:08 ALT 82 U/L (0-41) H 02/28/22 03:08 Alkaline Phosphatase 55 U/L (40-130) 02/28/22 03:08 Creatine Kinase 199 U/L (39-308) 02/27/22 08:49 Troponin T Baseline 22 ng/L (0-15) H 02/27/22 08:49 Troponin T 120 Minute 21.49 ng/L (0-15) H 02/27/22 11:15 Delta Troponin T -0.51 ABS# (0-10) L 02/27/22 11:15 Troponin T Hi Sens 6Hr 20.60 ng/L (0-15) H 02/27/22 15:35 Troponin T Hi Sens 6Hr Delta -1.40 ng/L (0-12) L 02/27/22 15:35 NT-Pro-B Natriuret Pep 1469 pg/mL (0-125) H 02/27/22 08:49 Total Protein 6.8 g/dL (6.6-8.7) 02/28/22 03:08 Albumin 4.3 g/dL (3.5-5.2) 02/28/22 03:08 Globulin 2.5 g/dL (1.3-4.6) 02/28/22 03:08 TSH 0.32 uIU/mL (0.27-4.20) 02/27/22 08:49 Urine Color Yellow (Yellow) 02/27/22 09:53 Urine Appearance Clear (CLEAR) 02/27/22 09:53 Urine pH 5 (5-7) 02/27/22 09:53 Ur Specific Archbold 1.020 (1.005-1.030) 02/27/22 09:53 Urine Protein 2+ (Negative) H 02/27/22 09:53 Urine Glucose (UA) Norm (Normal) 02/27/22 09:53 Urine Ketones Negative (Negative) 02/27/22 09:53 Urine Blood Neg (Negative) 02/27/22 09:53 Urine Nitrate Negative (Negative) 02/27/22 09:53 Urine Bilirubin Neg (Negative) 02/27/22 09:53 Urine Urobilinogen Neg mg/dL (Negative) 02/27/22 09:53 Ur Leukocyte Esterase Negative (Negative) 02/27/22 09:53 Urine RBC Rare /hpf (0-2) 02/27/22 09:53 Urine WBC Rare /hpf (0-5) 02/27/22 09:53 Ur Squamous Epith Cells Rare /hpf (0-5) 02/27/22 09:53 Amorphous Sediment Not Reportable 02/27/22 09:53 Urine Bacteria None /hpf (NONE) 02/27/22 09:53 Hepatitis A IgM Ab Non-reactive (Nonreactive) 02/27/22 08:49 Hep Bs Antigen Non-reactive (Nonreactive) 02/27/22 08:49 Hep B Core IgM Ab Non-reactive (Nonreactive) 02/27/22 08:49 Hepatitis C Antibody Non-reactive (Nonreactive) 02/27/22 08:49 Vitals Last Vital Signs Temp 98.3 F 02/28/22 04:00 Pulse 46 L 02/28/22 05:59 Resp 18 02/28/22 04:00 BP 121/74 02/28/22 04:00 Pulse Ox 98 02/28/22 08:00 O2 Del Method 02/28/22 08:00 Discharge Plan Discharge Patient Disposition: Home Condition: Stable Prescriptions: New furosemide 40 mg Tablet 40 mg PO DAILY@0800 Qty: 30 0RF potassium chloride 20 mEq tablet extended release 20 meq PO DAILY Qty: 30 0RF Eliquis 5 mg tablet 5 mg PO BID Qty: 60 0RF Continued amlodipine 5 mg tablet 5 mg PO DAILY triamcinolone acetonide 0.1 % ointment 1 applic topical BID Qty: 80 0RF Rx Instructions: Apply to affected area no more than 2 weeks per month. Not for face. Farxiga 10 mg tablet 10 mg PO QAM Qty: 30 11RF Discontinued metoprolol succinate 50 mg tablet extended release 24 hr 50 mg PO BEDTIME Discharge Orders: Discharge Order (Routine); Ordered 02/28/22 Ordered By: Quique Hernandez Other Ambulatory Orders: Sestamibi Stress Test Request (Routine) Timeframe: 1 Week Facility: [facility] - Location: Cardiac Diagnostic Laboratory Ordered By: Everett Roque MCT/Event Monitor 30 Days (Routine) Timeframe: 1 Day Facility: [facility] - Location: Radiology Ordered By: Quique Hernandez Referrals: Zak Hatch MD [Primary Care Provider] - 03/06/22 10:45 am Priyanka Toth FNP [Nurse Practitioner] - 03/07/22 9:15 am Discharge Diet: Cardiac Discharge Activity: Increase activity as tolerated Patient Instructions: Furosemide (By mouth) (Lasix), Apixaban (By mouth) (Eliq uis), Opioid Safety Activity Restrictions/Additional Instructions: Take all medicine as prescribed. Event monitor reviewed to be placed before discharge Follow-up with cardiology in 1 week, primary care provider 4 to 7 days Return for any concerns Patient's Health Concerns: Shortness of breath, low heart rate Assessment: Bradycardia, atrial fibrillation, CHF Plan of Treatment: Stop beta-juani Start Eliquis, Lasix, potassium Follow-up with cardiology Goals: NO recurrent hospitalization Discharge Attestations Time Spent in Discharge Care*: greater than 30 min Quality Metrics Clinical Quality Measures [ No reported AMI, CVA or VTE this stay] Coding Level of Care Code Acute g [facility] note Diagnoses Bradycardia R00.1 Congestive heart failure I50.9 Transaminitis R74.01 Diabetes mellitus E11.9
[2022-02-28] MEDS: FUROsemide 40 mg Tablet PO (09:15)
[2022-02-28] MEDS: amlodipine 5 mg Tablet PO (09:15)
[2022-02-28 09:55] VITALS: O2SAT 98
== END 2022-02-28 09:56 | disposition home or self-care (01) ==
LOC: ER 11:33 → CSU 17:05
PROVIDERS: Admitting Provider Internal Medicine; Emergency Provider Family Medicine; PCP Family Medicine; Visit Provider Internal Medicine
DX: R00.1 Bradycardia, unspecified (principal); I11.0 Hypertensive heart disease with heart failure; I50.9 Heart failure, unspecified; R74.01 Elevation of levels of liver transaminase levels; E11.9 Type 2 diabetes mellitus without complications; I48.91 Unspecified atrial fibrillation; N40.1 Benign prostatic hyperplasia with lower urinary tract symptoms; N13.8 Other obstructive and reflux uropathy; I10 Essential (primary) hypertension; Z85.46 Personal history of malignant neoplasm of prostate; R60.0 Localized edema; R06.02 Shortness of breath; C61 Malignant neoplasm of prostate; N32.81 Overactive bladder; N32.3 Diverticulum of bladder
CPT/HCPCS: 36415; 36416; 71045; 80053; 80074; 81001; 82550; 82962; 83605; 83735; 83880; 84443; 84484; 85025; 87040; 93005; 93228; 93306; 93970; 96365; 96367; 96372; 96375; 99214; 99285; G0378; J0456; J0696; J1650; J1940; J7050; Q9956

== ENCOUNTER → 2022-03-07 08:29 | Outpatient (BNVA) | payer MEDICARE, SELFPAY | PROVIDERS: PCP Family Medicine; Visit Provider Nurse Practitioner Family | DX: I48.91 Unspecified atrial fibrillation (principal); I11.0 Hypertensive heart disease with heart failure; I50.9 Heart failure, unspecified; Z79.01 Long term (current) use of anticoagulants | CPT/HCPCS: 99214 ==

== ENCOUNTER 2022-03-20 08:31 | Outpatient (CLI) | payer MEDICARE, SELFPAY ==
[2022-03-20 09:27] VITALS: BMI 36.2
--- NOTE | 2022-03-20 10:30 | PC.NURSE ---
CDL nurse received a call from nuclear medicine. Pt was unable to lay for his imaging. Pt instructed to call his doc for further instruction. IV was removed and pt send home. Pt stated he understood instructions.
== END 2022-03-20 08:32 | disposition home or self-care (01) ==
PROVIDERS: PCP Family Medicine; Visit Provider Internal Medicine Cardiovascular Disease
DX: Z53.8 Procedure and treatment not carried out for other reasons (principal)
CPT/HCPCS: 36415

== ENCOUNTER → 2022-06-17 08:00 | Outpatient (BNVA) | payer MEDICARE, SELFPAY | PROVIDERS: PCP Family Medicine; Visit Provider Dermatology | DX: C44.319 Basal cell carcinoma of skin of other parts of face (principal) | CPT/HCPCS: 99213 ==

== ENCOUNTER → 2022-06-24 13:53 | Outpatient (BNVA) | payer MEDICARE, SELFPAY | PROVIDERS: PCP Family Medicine; Visit Provider Internal Medicine Cardiovascular Disease | DX: I48.91 Unspecified atrial fibrillation (principal); Z79.01 Long term (current) use of anticoagulants; E11.9 Type 2 diabetes mellitus without complications; Z79.84 Long term (current) use of oral hypoglycemic drugs; I11.0 Hypertensive heart disease with heart failure; I50.9 Heart failure, unspecified; R00.1 Bradycardia, unspecified | CPT/HCPCS: 99214 ==

== ENCOUNTER 2022-07-29 12:15 | Outpatient (CLI) | payer MEDICARE, SELFPAY ==
--- NOTE | 2022-07-29 13:00 | ECG_ITS ---
[facility] Test Date: 2022-07-29 Pat Name: Juvencio Lacy Department: Room: Gender: Male [employer] Operator: May Louis : 1950 Requested By: Everett Roque Order Number: [id number] Cantu MD: Umberto Gonsalez M.D. Interpretive Statements NAME OF STUDY: TREADMILL STRESS TEST INDICATION: [Shortness of Breath, ] EXERCISE DATA: The patient was exercised by Igor protocol. Baseline heart rate was 53 beats per minute. Baseline blood pressure was 110/63 millimeters of mercury. Target heart rate was 126 beats per minute. Maximum heart rate achieved was 113, which was 89% of the target heart rate. Maximum blood pressure was 214/105 millimeters of mercury. Total exercise time was 16 minutes and 54 seconds. Maximum METs achieved was 7. The reason for ending the test was unable to reach target heart rate and symptoms. The patient complained of shortness of breath during the stress test, which then resolved at the end of the test. ELECTROCARDIOGRAM: BASELINE: Showed atrial fibrillation with incomplete right bundle branch block. EXERCISE: At the peak exercise level, [] No significant ST-T changes suggestive of ischemia noted. [] RECOVERY: During the recovery period, heart rate dropped appropriately. No significant ST-T changes in the recovery suggestive of ischemia noted. [] CONCLUSION: 1. Exercise capacity is fair. 2. Heart rate response was suboptimal 3. Blood pressure response was hypertensive 4. Symptoms not suggestive of ischemia. 5. Exercise stress test is indeterminate for ischemia as patient did not reach target heart rate. Electronically Signed On 08-12-2022 17:24:30 CDT by Umberto Gonsalez M.D. [email or web address]
[2022-07-29 13:30] VITALS: BP 156/100; PULSE 68
== END 2022-07-29 12:16 | disposition home or self-care (01) ==
LOC: CDL 12:16
PROVIDERS: PCP Family Medicine; Visit Provider Internal Medicine Cardiovascular Disease
DX: I48.91 Unspecified atrial fibrillation (principal); R06.02 Shortness of breath
CPT/HCPCS: 93017

== ENCOUNTER → 2022-09-15 09:37 | Outpatient (BNVA) | payer MEDICARE, SELFPAY | PROVIDERS: PCP Family Medicine; Visit Provider Internal Medicine Cardiovascular Disease | DX: I48.91 Unspecified atrial fibrillation (principal); E11.9 Type 2 diabetes mellitus without complications; I11.0 Hypertensive heart disease with heart failure; I50.9 Heart failure, unspecified; R00.1 Bradycardia, unspecified; R06.02 Shortness of breath; Z79.01 Long term (current) use of anticoagulants; Z79.84 Long term (current) use of oral hypoglycemic drugs | CPT/HCPCS: 36415; 80048; 83880; 99214 ==

== ENCOUNTER → 2022-10-09 12:33 | Outpatient (BNVA) | payer MEDICARE, SELFPAY | PROVIDERS: PCP Family Medicine; Visit Provider Dermatology | DX: L02.12 Furuncle of neck (principal); I87.2 Venous insufficiency (chronic) (peripheral); L57.8 Other skin changes due to chronic exposure to nonionizing radiation; L82.1 Other seborrheic keratosis; Z87.891 Personal history of nicotine dependence; Z85.828 Personal history of other malignant neoplasm of skin; D18.01 Hemangioma of skin and subcutaneous tissue; L81.4 Other melanin hyperpigmentation | CPT/HCPCS: 99214 ==

== ENCOUNTER → 2023-03-31 09:53 | Outpatient (BNVA) | payer MEDICARE, SELFPAY | PROVIDERS: PCP Family Medicine; Visit Provider Nurse Practitioner Family | DX: R00.1 Bradycardia, unspecified (principal); I48.11 Longstanding persistent atrial fibrillation; I11.0 Hypertensive heart disease with heart failure; I50.32 Chronic diastolic (congestive) heart failure; R94.31 Abnormal electrocardiogram [ECG] [EKG] | CPT/HCPCS: 93005; 99214 ==

== ENCOUNTER → 2023-10-27 10:08 | Outpatient (BNVA) | payer MEDICARE, SELFPAY | PROVIDERS: PCP Family Medicine; Visit Provider Nurse Practitioner Family | DX: D48.5 Neoplasm of uncertain behavior of skin (principal); L08.9 Local infection of the skin and subcutaneous tissue, unspecified; L82.1 Other seborrheic keratosis; Z85.828 Personal history of other malignant neoplasm of skin | CPT/HCPCS: 11102; 99213 ==

== ENCOUNTER → 2023-11-09 08:03 | Outpatient (BNVA) | payer MEDICARE, SELFPAY | PROVIDERS: PCP Family Medicine; Visit Provider Dermatology | DX: C44.319 Basal cell carcinoma of skin of other parts of face (principal); L82.1 Other seborrheic keratosis; L73.8 Other specified follicular disorders | CPT/HCPCS: 13132; 17311; 99213 ==

== ENCOUNTER → 2024-03-24 07:52 | Outpatient (BNVA) | payer MEDICARE, SELFPAY | PROVIDERS: PCP Family Medicine; Visit Provider Nurse Practitioner Family | DX: D18.01 Hemangioma of skin and subcutaneous tissue (principal); L82.1 Other seborrheic keratosis; L57.8 Other skin changes due to chronic exposure to nonionizing radiation; Z08 Encounter for follow-up examination after completed treatment for malignant neoplasm; Z85.828 Personal history of other malignant neoplasm of skin; D48.5 Neoplasm of uncertain behavior of skin | CPT/HCPCS: 11102; 99213 ==

== ENCOUNTER → 2024-05-09 07:51 | Outpatient (BNVA) | payer MEDICARE, SELFPAY | PROVIDERS: PCP Family Medicine; Visit Provider Dermatology | DX: D22.39 Melanocytic nevi of other parts of face (principal); L82.1 Other seborrheic keratosis; Z08 Encounter for follow-up examination after completed treatment for malignant neoplasm; Z85.828 Personal history of other malignant neoplasm of skin; C44.311 Basal cell carcinoma of skin of nose | CPT/HCPCS: 17311; 99213 ==

== ENCOUNTER → 2024-05-23 09:49 | Outpatient (BNVA) | payer MEDICARE, SELFPAY | PROVIDERS: PCP Family Medicine; Visit Provider Dermatology | DX: C44.311 Basal cell carcinoma of skin of nose (principal) | CPT/HCPCS: 99213 ==

== ENCOUNTER → 2024-09-21 07:54 | Outpatient (BNVA) | payer MEDICARE, SELFPAY | PROVIDERS: PCP Family Medicine; Visit Provider Nurse Practitioner Family | DX: B36.0 Pityriasis versicolor (principal); D22.39 Melanocytic nevi of other parts of face; L82.1 Other seborrheic keratosis; Z08 Encounter for follow-up examination after completed treatment for malignant neoplasm; Z85.828 Personal history of other malignant neoplasm of skin; L57.0 Actinic keratosis | CPT/HCPCS: 17000; 99214 ==